=== PATIENT | female | born 1940 | race Caucasian/White ===

== ENCOUNTER 2017-10-12 11:31 | Inpatient (IN) | payer MEDICARE, BC, SELFPAY ==
[2017-10-12] VITALS (7 sets, daily range): BP systolic 135–162; BP diastolic 69–88; PULSE 87–92; RESP 13–20; TEMP 36.2–36.8; O2SAT 96–100; BMI 23.0
--- NOTE | 2017-10-12 11:35 | DI.RAD.S_ITS ---
PROCEDURE: XR CHEST 2V INDICATIONS: dysphagia TECHNIQUE: 2 views of the chest were acquired. COMPARISON: [facility], , CHEST 1 VIEW, 10/07/2016, 14:22. FINDINGS: Surgical changes and devices: Cholecystectomy clips and clips at the gastroesophageal junction are stable. Lungs and pleura: No pleural effusions or pneumothorax. Lungs are clear no acute opacities. Scarring in the periphery of the left midlung is stable. Mediastinum: Mediastinal contours are normal. Heart size is normal. Bones and chest wall: No suspicious bony abnormalities. Soft tissues appear unremarkable. IMPRESSION: No acute cardiopulmonary disease process. Dictated by: Vero Subramanian MD, PhD on 10/12/2017 at 11:35 Approved by: Vero Subramanian MD, PhD on 10/12/2017 at 11:36
--- NOTE | 2017-10-12 11:37 | ED.WEAKNESS ---
HPI - Weakness General Chief complaint: Upper Respiratory Symptoms Stated complaint: cant swallow Time Seen by Provider: 10/12/17 11:34 Source: patient and other (Dr. Swanson) Mode of arrival: wheelchair Limitations: no limitations History of Present Illness HPI Narrative: 77F hx multiple strokes and TIA sent by Dr. 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 Dr. Swanson requests IV fluids be started and screening labs. Related Data Home Medications Medication Instructions Recorded Confirmed latanoprost 1 drp OPHTHALMIC (EYE) QHS 10/12/17 10/12/17 pantoprazole 40 mg PO DAILY 10/12/17 10/12/17 Allergies Allergy/AdvReac Type Severity Reaction Status Date / Time codeine [CODEINE] Allergy Severe HAND Unverified 08/30/17 11:56 SWELLING morphine [MORPHINE] Allergy Severe ITCH Unverified 08/30/17 11:56 Penicillins [PENICILLINS] Allergy Severe ITCH Unverified 08/30/17 11:56 trimethoprim [From BACTRIM] Allergy Severe N/V, Unverified 08/30/17 11:56 BREATHING PROBLEMS sulfamethoxazole Allergy Mild N/V Unverified 08/30/17 11:56 [From BACTRIM] clindamycin [CLINDAMYCIN] Allergy Unknown PT UNSURE Unverified 08/30/17 11:56 gentamicin [GENTAMICIN] Allergy Unknown PT UNSURE Unverified 08/30/17 11:56 ALL THE CILLINS Allergy Severe ITCH Uncoded 08/30/17 11:56 IV CONTRAST DYE Allergy Severe RASH, Uncoded 08/30/17 11:56 SWEATING RAW CELERY Allergy Severe ANAPHYLAXIS Uncoded 08/30/17 11:56 Review of Systems Constitutional Denies chills, Denies fever(s), Denies lethargy and Denies weakness ENT Ears, Nose, Mouth, and Throat: Reports dysphagia, Denies mouth pain, Denies neck pain, Denies throat swelling and Denies tongue swelling Cardiovascular Denies chest pain, Denies irregular heart rhythm, Denies lightheadedness, Denies palpitations, Denies dyspnea, Denies dyspnea on exertion and Denies orthopnea Respiratory Denies cough, Denies dyspnea, Denies dyspnea on exertion and Denies wheezing Gastrointestinal Gastrointestinal: Reports dysphagia, Denies nausea and Reports vomiting Genitourinary Denies hematuria, Denies flank pain, Denies urinary incontinence and Denies urinary urgency Musculoskeletal Denies neck pain Neurologic Denies weakness Endocrine Denies palpitations Allergic/Immunologic Denies throat swelling, Denies tongue swelling and Denies wheezing [facility] Social History Smoking Status: Never smoker Exam Initial Vital Signs Initial Vital Signs: Vital Signs Temperature 97.1 F L 10/12/17 12:00 Pulse Rate 88 10/12/17 12:00 Respiratory Rate 16 10/12/17 12:00 Blood Pressure 138/73 H 10/12/17 12:00 Pulse Oximetry 98 10/12/17 12:00 Const General: cooperative and well developed Nutritional Appearance: well nourished Orientation: alert, awake, oriented x3 and not confused Eyes General: appearance normal, both eyes and all related structures Eyelids: eyelids normal Conjunctivae: conjunctivae normal Sclera: sclerae normal Pupils: PERRL EOM: EOM intact bilaterally Neck Neck: normal visual inspection, trachea midline, No lymphadenopathy, No midline deformity and No JVD Lymphatic: No lymphedema Resp Effort & Inspection: normal respiratory effort, able to speak in complete sentences, no respiratory distress and no use of accessory muscles Auscultation: clear to auscultation bilaterally, no rales, no rhonchi and no wheezes Cardio Rate: regular rate Rhythm: regular rhythm Heart Sounds: no click, no gallops, murmur systolic and no rubs Pulses: normal peripheral pulses GI Inspection: non-distended Palpation: soft, no hepatosplenomegaly, No guarding, No pulsatile mass and No tender Auscultation: normal bowel sounds Neuro General: alert, oriented x3, gait normal and no focal motor deficits Speech: speech normal Course Orders Ordered: ED Orders 10/12/17 11:35 XR chest 2V Stat Urinalysis and Microscopic Stat 10/12/17 12:11 EKG-12 Lead Stat 10/12/17 12:45 Complete Blood Count AUTO DIFF Stat Comprehensive Metabolic Panel Stat Magnesium Stat Partial Thromboplastin Time Stat Prothrombin Time INR Stat 10/12/17 13:05 Lactate (Lactic Acid) Stat Discontinued Medications Sodium Chloride (Normal Saline 0.9%) 1,000 mls @ 1,000 mls/hr IV BOLUS ONE Stop: 10/12/17 12:34 Last Infusion: 10/12/17 13:56 Dose: 0 mls/hr Admin: 10/12/17 12:48 Dose: 1,000 mls/hr Vital Signs - 8 hr 10/12/17 12:00 10/12/17 13:02 10/12/17 14:02 Temperature 97.1 F L Pulse Rate 88 87 Respiratory Rate 16 13 Blood Pressure 138/73 H Blood Pressure [Left Arm] 162/78 H 150/78 H Pulse Oximetry 98 100 MDM - Weakness Lab Data Result diagrams: 10/12/17 12:45 10/12/17 12:45 Lab Results 10/12/17 10/12/17 10/12/17 Range/Units 12:45 12:45 12:45 WBC 13.3 H (4.5-11.0) X10^3/uL RBC 5.08 (4.0-5.2) X10^6/uL Hgb 15.4 (12.0-16.0) g/dL Hct 44.9 (36-46) % MCV 88.3 (80-100) fL MCH 30.3 (26-34) PG MCHC 34.3 (30-36) % RDW 13.9 (11.6-14.8) % Plt Count 325 (150-400) X10^3/uL Neut % (Auto) 82.5 H (50-75) % Lymph % (Auto) 8.9 L (25-40) % [place] % (Auto) 5.7 (3-14) % Eos % (Auto) 2.3 (2-4) % Baso % (Auto) 0.6 (0-2) % Neut # (Auto) 58129 H (7748-2030) /uL PT 11.4 (10.1-12.7) SECONDS INR 1.1 (0.9-1.3) APTT 36 (26.4-36.2) SECONDS Sodium 146 H (137-145) mmol/L Potassium 3.8 (3.4-5.1) mmol/L Chloride 108.0 H (98-107) mmol/L Carbon Dioxide 16.0 L (22-32) mmol/L BUN 21.0 H (7-17) mg/dL Creatinine 1.20 H (0.52-1.04) mg/dL Estimated GFR 43.4 L (>60) mL/min BUN/Creatinine Ratio 17.5 (6-22) Glucose 114 H (80-110) mg/dL Lactate (0.7-2.1) mmol/L Calcium 10.2 (8.4-10.2) mg/dL Magnesium 2.0 (1.6-2.3) mg/dL Total Bilirubin 0.9 (0.2-1.3) mg/dL AST 26 (14-36) IU/L ALT 30 (9-52) IU/L Alkaline Phosphatase 119 (38-126) U/L Total Protein 8.3 H (6.3-8.2) g/dL Albumin 4.7 (3.5-5.0) g/dL Globulin 3.6 (1.7-4.1) g/dL Albumin/Globulin Ratio 1.3 (1.0-2.8) 05/24/18 Range/Units 13:05 WBC (4.5-11.0) X10^3/uL RBC (4.0-5.2) X10^6/uL Hgb (12.0-16.0) g/dL Hct (36-46) % MCV (80-100) fL MCH (26-34) PG MCHC (30-36) % RDW (11.6-14.8) % Plt Count (150-400) X10^3/uL Neut % (Auto) (50-75) % Lymph % (Auto) (25-40) % [place] % (Auto) (3-14) % Eos % (Auto) (2-4) % Baso % (Auto) (0-2) % Neut # (Auto) (2194-5870) /uL PT (10.1-12.7) SECONDS INR (0.9-1.3) APTT (26.4-36.2) SECONDS Sodium (137-145) mmol/L Potassium (3.4-5.1) mmol/L Chloride (98-107) mmol/L Carbon Dioxide (22-32) mmol/L BUN (7-17) mg/dL Creatinine (0.52-1.04) mg/dL Estimated GFR (>60) mL/min BUN/Creatinine Ratio (6-22) Glucose (80-110) mg/dL Lactate 1.1 (0.7-2.1) mmol/L Calcium (8.4-10.2) mg/dL Magnesium (1.6-2.3) mg/dL Total Bilirubin (0.2-1.3) mg/dL AST (14-36) IU/L ALT (9-52) IU/L Alkaline Phosphatase (38-126) U/L Total Protein (6.3-8.2) g/dL Albumin (3.5-5.0) g/dL Globulin (1.7-4.1) g/dL Albumin/Globulin Ratio (1.0-2.8) ABG Data Interpretation: Imaging Data Chest x-ray: Radiologist's impression: Patient: Shantell Hunter FMR#: [id number] : 1940Acct:[id number] Age/Sex: 77 / FDate of Service: 10/12/17 Loc: ED Accession Number: [id number] Procedure: XR chest 2V Ordering Provider: Silvio Mcdonough M.D. PROCEDURE: XR CHEST 2V INDICATIONS: dysphagia TECHNIQUE: 2 views of the chest were acquired. COMPARISON: [facility], , CHEST 1 VIEW, 10/07/2016, 14:22. FINDINGS: Surgical changes and devices: Cholecystectomy clips and clips at the gastroesophageal junction are stable. Lungs and pleura: No pleural effusions or pneumothorax. Lungs are clear no acute opacities. Scarring in the periphery of the left midlung is stable. Mediastinum: Mediastinal contours are normal. Heart size is normal. Bones and chest wall: No suspicious bony abnormalities. Soft tissues appear unremarkable. IMPRESSION: No acute cardiopulmonary disease process. Dictated by: Vero Subramanian MD, PhD on 10/12/2017 at 11:35 Approved by: Vero Subramanian MD, PhD on 10/12/2017 at 11:36 ECG Data Interpretation: Sinus Rhythm HR [address]/Tw change No ischemic changes Unchanged from prior 10/07/16 MDM Narrative Medical decision making narrative: Patient sent by PCP for evaluation of dysphagia and admission for dehydration Found to be in JOSE likely secondary to dehydration. IV fluids started No vomiting in ED. Handling secretions. Case discussed with Hospitalist Dr Dickerson. Agrees with plan for admission and further diagnostic testing. Discharge Plan Departure Patient Disposition: Admitted As Inpatient Clinical Impression: Dysphagia, JOSE (acute kidney injury), Dehydration
[2017-10-12] MEDS: SODIUM CHLORIDE 0.9% 1,000 ML 1000 ML IV (12:48)
[2017-10-12 12:52] LABS: Add Manual Diff / Slide Review NO; Basophils Percent Auto 0.6 % (0-2); Eosinophils Percent Auto 2.3 % (2-4); Hematocrit 44.9 % (36-46); Hemoglobin 15.4 g/dL (12.0-16.0); Lymphocytes Percent Auto 8.9 % (25-40); Mean Corpuscular HGB Conc 34.3 % (30-36); Mean Corpuscular Hemoglobin 30.3 PG (26-34); Mean Corpuscular Volume 88.3 fL (80-100); Monocytes Percent Auto 5.7 % (3-14); Neutrophils Absolute Auto 11000 /uL (3000-5900); Neutrophils Percent Auto 82.5 % (50-75); Platelet Count 325 X10^3/uL (150-400); Red Blood Cell Count 5.08 X10^6/uL (4.0-5.2); Red Cell Distribution Width 13.9 % (11.6-14.8); White Blood Cell Count 13.3 X10^3/uL (4.5-11.0)
--- NOTE | 2017-10-12 12:58 | PC.NURSE ---
Pt is unable to keep anything down. After eating or drinking, she will regurgitate it immediately back up. She states it feels as if it's stopping in her throat and coming right back up. Denies any abdominal pain. Has urinated today, but now bowel movement.
[2017-10-12 12:59] LABS: INR 1.1 (0.9-1.3); Prothrombin Time 11.4 SECONDS (10.1-12.7)
[2017-10-12 13:02] LABS: PTT Partial Thromboplastin Tim 36 SECONDS (26.4-36.2)
[2017-10-12 13:04] LABS: Alanine Aminotransferase 30 IU/L (9-52); Albumin 4.7 g/dL (3.5-5.0); Albumin Globulin Ratio 1.3 (1.0-2.8); Alkaline Phosphatase 119 U/L (38-126); Aspartate Aminotransferase 26 IU/L (14-36); BUN Creatinine Ratio 17.5 (6-22); Bilirubin Total 0.9 mg/dL (0.2-1.3); Calcium 10.2 mg/dL (8.4-10.2); Estimated Glomerular Filt Rate 43.4 mL/min (>60); Globulin 3.6 g/dL (1.7-4.1); Glucose 114 mg/dL (80-110); HEMOLYSIS < 15 (0-50); Potassium 3.8 mmol/L (3.4-5.1); Sodium 146 mmol/L (137-145); Total Protein 8.3 g/dL (6.3-8.2)
[2017-10-12 13:21] LABS: Lactate (Lactic Acid) 1.1 mmol/L (0.7-2.1)
--- NOTE | 2017-10-12 14:38 | PC.NURSE ---
Pt c/o 8/10 pain everywhere. Provider notified. No new orders.
--- NOTE | 2017-10-12 15:42 | PM.HP.1 ---
History of Present Illness Chief complaint: cant swallow Narrative: Shantell Hunter is a 77 year old female, patient of Dr. Rylan Berger who was sent from her primary care doctor's office to [facility] Emergency Room due to dysphagia. She started having difficulty with swallowing pretty suddenly yesterday. She is not able to swallow either liquid or solid. She feels food or liquid stuck in her throat. She has to regurgitate them out. She even has difficulty clear her own secretions. She has not noticed any speech problem or weakness or numbness on her extremities. Her has not noticed any confusion. Patient History Comment: Stroke times for Hypertension Lower GI bleed in 2016, on received 12 units of blood transfusion and partial resection of her colon Cholecystectomy Appendectomy Tonsillectomy Right kidney stone Family & Social History Household members: spouse Prior Living Arrangements: House lives independently: Yes other: Family history was noncontributory. Tobacco & Substance Use Smoking Status: Never smoker Meds Home Medications Medication Instructions Recorded Confirmed Type latanoprost 1 drp OPHTHALMIC (EYE) QHS 10/12/17 10/12/17 History pantoprazole 40 mg PO DAILY 10/12/17 10/12/17 History Allergies Allergy/AdvReac Type Severity Reaction Status Date / Time codeine [CODEINE] Allergy Severe HAND Unverified 08/30/17 11:56 SWELLING morphine [MORPHINE] Allergy Severe ITCH Unverified 08/30/17 11:56 Penicillins [PENICILLINS] Allergy Severe ITCH Unverified 08/30/17 11:56 trimethoprim [From BACTRIM] Allergy Severe N/V, Unverified 08/30/17 11:56 BREATHING PROBLEMS sulfamethoxazole Allergy Mild N/V Unverified 08/30/17 11:56 [From BACTRIM] clindamycin [CLINDAMYCIN] Allergy Unknown PT UNSURE Unverified 08/30/17 11:56 gentamicin [GENTAMICIN] Allergy Unknown PT UNSURE Unverified 08/30/17 11:56 ALL THE CILLINS Allergy Severe ITCH Uncoded 08/30/17 11:56 IV CONTRAST DYE Allergy Severe RASH, Uncoded 08/30/17 11:56 SWEATING RAW CELERY Allergy Severe ANAPHYLAXIS Uncoded 08/30/17 11:56 Review of Systems Constitutional Comments: No fever chills or sweats Cardiovascular Comments: No chest pain or shortness of breath Respiratory Comments: Denies coughing Gastrointestinal Comments: No abdominal pain or nausea Genitourinary Comments: Denies dysuria Musculoskeletal Comments: Low back pain Neurologic Comments: No numbness or weakness on extremities Exam Vital Signs (past 8 hours): Vital Signs - 8 hr 10/12/17 12:00 10/12/17 13:02 10/12/17 14:02 Temperature 97.1 F L Pulse Rate 88 87 Respiratory Rate 16 13 Blood Pressure 138/73 H Blood Pressure [Left Arm] 162/78 H 150/78 H Pulse Oximetry 98 100 10/12/17 15:05 Temperature 98.2 F Pulse Rate 91 H Respiratory Rate 14 Blood Pressure 135/72 H Blood Pressure [Left Arm] Pulse Oximetry 97 Pulse Oximetry 97 Oxygen Delivery Method Room Air Oxygen Flow Rate 0 Narrative Exam Narrative: GENERAL: Well-appearing, well-nourished and in no acute distress. HEENT: Head normocephalic, atraumatic. Eyes pupils equal round NECK: Supple, no JVD, CHEST: Breath sounds equal bilaterally, no wheezes rales or rhonchi. CARDIAC: Regular rate and rhythm without murmurs, rubs or gallops. ABDOMEN: Soft, nontender. Normoactive bowel sounds all 4 quadrants. No guarding or rebound. EXTREMITIES: Normal range of motion, no clubbing or edema. NEUROLOGICAL: Alert and oriented; cranial nerves 3-12 were intact. 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 Normal muscle strength in upper and lower extremities. SKIN: Warm, dry, no petechiae, no rashes or lesions. Objective Labs Result Diagrams: 10/12/17 12:45 10/12/17 12:45 Labs: Laboratory Results - last 24 hr 10/12/17 10/12/17 10/12/17 12:45 12:45 12:45 WBC 13.3 H RBC 5.08 Hgb 15.4 Hct 44.9 MCV 88.3 MCH 30.3 MCHC 34.3 RDW 13.9 Plt Count 325 Neut % (Auto) 82.5 H Lymph % (Auto) 8.9 L [place] % (Auto) 5.7 Eos % (Auto) 2.3 Baso % (Auto) 0.6 Neut # (Auto) 26700 H PT 11.4 INR 1.1 APTT 36 Sodium 146 H Potassium 3.8 Chloride 108.0 H Carbon Dioxide 16.0 L BUN 21.0 H Creatinine 1.20 H Estimated GFR 43.4 L BUN/Creatinine Ratio 17.5 Glucose 114 H Lactate Calcium 10.2 Magnesium 2.0 Total Bilirubin 0.9 AST 26 ALT 30 Alkaline Phosphatase 119 Total Protein 8.3 H Albumin 4.7 Globulin 3.6 Albumin/Globulin Ratio 1.3 10/12/17 13:05 WBC RBC Hgb Hct MCV MCH MCHC RDW Plt Count Neut % (Auto) Lymph % (Auto) [place] % (Auto) Eos % (Auto) Baso % (Auto) Neut # (Auto) PT INR APTT Sodium Potassium Chloride Carbon Dioxide BUN Creatinine Estimated GFR BUN/Creatinine Ratio Glucose Lactate 1.1 Calcium Magnesium Total Bilirubin AST ALT Alkaline Phosphatase Total Protein Albumin Globulin Albumin/Globulin Ratio Assessment & Plan Plan: Plan: 1. Dysphagia: Etiology is unclear. We will have speech evaluation and treatment. Consider upper endoscopy to rule out esophageal stricture. With her history of recurrent CVA, there is concern of CVA. However she does not seem to have other neurological symptoms. We will give her 1 time dose of aspirin suppository. Start telemetry monitoring 2. Hypertension: Continue outpatient medication. Continue monitor her blood pressure readings 3. Dehydration: Secondary to unable to take oral hydration. We will continue normal saline IV at 125 cc an hour. 4. Probable GERD: Continue Protonix
--- NOTE | 2017-10-12 15:49 | P.HP_ITS ---
History of Present Illness Chief complaint: cant swallow Narrative: Shantell Hunter is a 77 year old female, patient of Dr. Rylan agrawal who was sent from her primary care doctor's office to [facility] Emergency Room due to dysphagia. She started having difficulty with swallowing pretty suddenly yesterday. She is not able to swallow either liquid or solid. She feels food or liquid stuck in her throat. She has to regurgitate them out. She even has difficulty clear her own secretions. She has not noticed any speech problem or weakness or numbness on her extremities. Her has not noticed any confusion. Patient History Comment: Stroke times for Hypertension Lower GI bleed in 2016, on received 12 units of blood transfusion and partial resection of her colon Cholecystectomy Appendectomy Tonsillectomy Right kidney stone Family & Social History Household members: spouse Prior Living Arrangements: House lives independently: Yes other: Family history was noncontributory. Tobacco & Substance Use Smoking Status: Never smoker Meds Home Medications Medication Instructions Recorded Confirmed Type latanoprost 1 drp OPHTHALMIC (EYE) QHS 10/12/17 10/12/17 History pantoprazole 40 mg PO DAILY 10/12/17 10/12/17 History Allergies Allergy/AdvReac Type Severity Reaction Status Date / Time codeine [CODEINE] Allergy Severe HAND Unverified 08/30/17 11:56 SWELLING morphine [MORPHINE] Allergy Severe ITCH Unverified 08/30/17 11:56 Penicillins [PENICILLINS] Allergy Severe ITCH Unverified 08/30/17 11:56 trimethoprim [From BACTRIM] Allergy Severe N/V, Unverified 08/30/17 11:56 BREATHING PROBLEMS sulfamethoxazole Allergy Mild N/V Unverified 08/30/17 11:56 [From BACTRIM] clindamycin [CLINDAMYCIN] Allergy Unknown PT UNSURE Unverified 08/30/17 11:56 gentamicin [GENTAMICIN] Allergy Unknown PT UNSURE Unverified 08/30/17 11:56 ALL THE CILLINS Allergy Severe ITCH Uncoded 08/30/17 11:56 IV CONTRAST DYE Allergy Severe RASH, Uncoded 08/30/17 11:56 SWEATING RAW CELERY Allergy Severe ANAPHYLAXIS Uncoded 08/30/17 11:56 Review of Systems Constitutional Comments: No fever chills or sweats Cardiovascular Comments: No chest pain or shortness of breath Respiratory Comments: Denies coughing Gastrointestinal Comments: No abdominal pain or nausea Genitourinary Comments: Denies dysuria Musculoskeletal Comments: Low back pain Neurologic Comments: No numbness or weakness on extremities Exam Vital Signs (past 8 hours): Vital Signs - 8 hr 3 10/12/17 12:00 10/12/17 13:02 10/12/17 14:02 Temperature 97.1 F L Pulse Rate 88 87 Respiratory Rate 16 13 Blood Pressure 138/73 H Blood Pressure [Left Arm] 162/78 H 150/78 H Pulse Oximetry 98 100 3 10/12/17 15:05 Temperature 98.2 F Pulse Rate 91 H Respiratory Rate 14 Blood Pressure 135/72 H Blood Pressure [Left Arm] Pulse Oximetry 97 Pulse Oximetry 97 Oxygen Delivery Method Room Air Oxygen Flow Rate 0 Narrative Exam Narrative: GENERAL: Well-appearing, well-nourished and in no acute distress. HEENT: Head normocephalic, atraumatic. Eyes pupils equal round NECK: Supple, no JVD, CHEST: Breath sounds equal bilaterally, no wheezes rales or rhonchi. CARDIAC: Regular rate and rhythm without murmurs, rubs or gallops. ABDOMEN: Soft, nontender. Normoactive bowel sounds all 4 quadrants. No guarding or rebound. EXTREMITIES: Normal range of motion, no clubbing or edema. NEUROLOGICAL: Alert and oriented; cranial nerves 3-12 were intact. 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 Normal muscle strength in upper and lower extremities. SKIN: Warm, dry, no petechiae, no rashes or lesions. Objective Labs Result Diagrams: 10/12/17 12:45 10/12/17 12:45 Labs: Laboratory Results - last 24 hr 10/12/17 10/12/17 10/12/17 12:45 12:45 12:45 WBC 13.3 H RBC 5.08 Hgb 15.4 Hct 44.9 MCV 88.3 MCH 30.3 MCHC 34.3 RDW 13.9 Plt Count 325 Neut % (Auto) 82.5 H Lymph % (Auto) 8.[address] [place] [place] % (Auto) 5.7 Eos % (Auto) 2.3 Baso % (Auto) 0.6 Neut # (Auto) 06699 H PT 11.4 INR 1.1 APTT 36 Sodium 146 H Potassium 3.8 Chloride 108.0 H Carbon Dioxide 16.0 L BUN 21.0 H Creatinine 1.20 H Estimated GFR 43.4 L BUN/Creatinine Ratio 17.5 Glucose 114 H Lactate Calcium 10.2 Magnesium 2.0 Total Bilirubin 0.9 AST 26 ALT 30 Alkaline Phosphatase 119 Total Protein 8.3 H Albumin 4.7 Globulin 3.6 Albumin/Globulin Ratio 1.3 10/12/17 13:05 WBC RBC Hgb Hct MCV MCH MCHC RDW Plt Count Neut % (Auto) Lymph % (Auto) [place] % (Auto) Eos % (Auto) Baso % (Auto) Neut # (Auto) PT INR APTT Sodium Potassium Chloride Carbon Dioxide BUN Creatinine Estimated GFR BUN/Creatinine Ratio Glucose Lactate 1.1 Calcium Magnesium Total Bilirubin AST ALT Alkaline Phosphatase Total Protein Albumin Globulin Albumin/Globulin Ratio Assessment & Plan Plan: Plan: 1. Dysphagia: Etiology is unclear. We will have speech evaluation and treatment. Consider upper endoscopy to rule out esophageal stricture. With her history of recurrent CVA, there is concern of CVA. However she does not seem to have other neurological symptoms. We will give her 1 time dose of aspirin suppository. Start telemetry monitoring 2. Hypertension: Continue outpatient medication. Continue monitor her blood pressure readings 3. Dehydration: Secondary to unable to take oral hydration. We will continue normal saline IV at 125 cc an hour. 4. Probable GERD: Continue Protonix
--- NOTE | 2017-10-12 16:30 | PM.PN.1 ---
Subjective Interval history: Patient denies discomfort. He is laying in bed comfortably. Nursing has noticed his heart rate is in the 40s and blood pressure is also low around 90s systolic. Date Patient Seen: 10/12/17 Time Patient Seen: 16:00 Exam Vital Signs (past 8 hours): Vital Signs - 8 hr 10/12/17 12:00 10/12/17 13:02 10/12/17 14:02 Temperature 97.1 F L Pulse Rate 88 87 Respiratory Rate 16 13 Blood Pressure 138/73 H Blood Pressure [Left Arm] 162/78 H 150/78 H Pulse Oximetry 98 100 10/12/17 15:05 Temperature 98.2 F Pulse Rate 91 H Respiratory Rate 14 Blood Pressure 135/72 H Blood Pressure [Left Arm] Pulse Oximetry 97 Pulse Oximetry 97 Oxygen Delivery Method Room Air Oxygen Flow Rate 0 Objective Labs Result Diagrams: 10/12/17 12:45 10/12/17 12:45 Labs: Laboratory Results - last 24 hr 10/12/17 10/12/17 10/12/17 12:45 12:45 12:45 WBC 13.3 H RBC 5.08 Hgb 15.4 Hct 44.9 MCV 88.3 MCH 30.3 MCHC 34.3 RDW 13.9 Plt Count 325 Neut % (Auto) 82.5 H Lymph % (Auto) 8.9 L [place] % (Auto) 5.7 Eos % (Auto) 2.3 Baso % (Auto) 0.6 Neut # (Auto) 00429 H PT 11.4 INR 1.1 APTT 36 Sodium 146 H Potassium 3.8 Chloride 108.0 H Carbon Dioxide 16.0 L BUN 21.0 H Creatinine 1.20 H Estimated GFR 43.4 L BUN/Creatinine Ratio 17.5 Glucose 114 H Lactate Calcium 10.2 Magnesium 2.0 Total Bilirubin 0.9 AST 26 ALT 30 Alkaline Phosphatase 119 Total Protein 8.3 H Albumin 4.7 Globulin 3.6 Albumin/Globulin Ratio 1.3 10/12/17 13:05 WBC RBC Hgb Hct MCV MCH MCHC RDW Plt Count Neut % (Auto) Lymph % (Auto) [place] % (Auto) Eos % (Auto) Baso % (Auto) Neut # (Auto) PT INR APTT Sodium Potassium Chloride Carbon Dioxide BUN Creatinine Estimated GFR BUN/Creatinine Ratio Glucose Lactate 1.1 Calcium Magnesium Total Bilirubin AST ALT Alkaline Phosphatase Total Protein Albumin Globulin Albumin/Globulin Ratio
[2017-10-12] MEDS: HYDROMORPHONE 0.5 MG INJ IV ×3 (16:35→21:19)
[2017-10-12] MEDS: SODIUM CHLORIDE 0.9% 1,000 ML 125 ML IV (16:38)
[2017-10-12 17:22] LABS: RBC Urine None Seen (0-5/HPF)
[2017-10-12 17:26] LABS: Appearance Urine UA SL CLOUDY; Bilirubin Urine UA NEGATIVE (NEGATIVE); Color Urine UA YELLOW; Glucose Urine UA NEGATIVE (Negative); Ketones Urine UA 1+ (NEGATIVE); Leukocyte Esterase Urine UA 2+ (NEGATIVE); Nitrite Urine UA POSITIVE (Negative); Occult Blood Urine UA NEGATIVE (Negative); Protein Urine UA TRACE (Negative); Specific Gravity Urine UA 1.015 (1.000-1.035); Urobilinogen Urine UA 0.2 E.U./dL (0.2); pH Urine UA 6.5 (4.5-8.0)
[2017-10-12 17:30] LABS: Bacteria Urine Many (>30); Culture Indicated Urine Specimen Cultured; WBC Urine 10-30/HPF (0-5/HPF)
[2017-10-12] MEDS: LATANOPROST 0.005% OPHTH 2.5 ML 1 DROPS EYE-BOTH (21:03)
--- NOTE | 2017-10-13 | DI.RAD.S_ITS ---
PROCEDURE: FL BARIUM SWALLOW W SPEECH INDICATIONS: dysphagia TECHNIQUE: Examination was conducted in conjunction with speech pathology per standard protocol. In the lateral projection, filming was performed of the patient swallowing. AP projection filming may also be performed with patient swallowing. COMPARISON: None. FINDINGS: Function: The oral preparatory phase appears normal, with proper containment. The subsequent oral propulsive phase, pharyngeal phase, and esophageal phase of swallowing also appear normal with all proffered substances. Minimal laryngotracheal penetration with large swallow of thin liquids at the end of the exam, no aspiration. No pathologic vallecular pooling. Morphology: No cricopharyngeal bar is identified. No cervical esophageal webs. No Zenker's diverticulum. No strictures. IMPRESSION: Minimal laryngeal penetration. Please see speech therapist report for details. Dictated by: Ravi Gutiérrez M.D. on 10/13/2017 at 11:33 Approved by: Ravi Gutiérrez M.D. on 10/13/2017 at 11:35
[2017-10-13] MEDS: SODIUM CHLORIDE 0.9% 1,000 ML 125 ML IV ×3 (00:06→17:18)
[2017-10-13] MEDS: HYDROMORPHONE 0.5 MG INJ IV ×4 (01:17→12:59)
[2017-10-13 04:47] VITALS: BP 150/81; PULSE 75; RESP 18; TEMP 36.7; O2SAT 99
--- NOTE | 2017-10-13 07:07 | PC.NURSE ---
no episodes of n/v. at one point she felt like vomiting. she has not had anything to eat or drink all night. IVF infusing.
[2017-10-13 07:20] VITALS: BP 146/77; PULSE 72; RESP 16; TEMP 36.1; O2SAT 98
[2017-10-13] MEDS: PANTOPRAZOLE 40 MG TABLET PO (09:13)
[2017-10-13 10:17] VITALS: O2SAT 96
--- NOTE | 2017-10-13 10:51 | PC.NURSE ---
Day shift: Pt left unit for barium swallow eval/prcedure. A&Ox3. Calm and cooperative.
--- NOTE | 2017-10-13 11:29 | PC.NURSE ---
Day shift: Pt back on unit and in bed at approx 1130. Still A&Ox3. Denies any pain or discomfort. She reports she was able to keep the fluid down for the procedure. No emesis. Call light in reach. Bed alarm on. Spouse in room for support.
[2017-10-13 12:00] VITALS: BP 148/78; PULSE 78; RESP 16; TEMP 36.4; O2SAT 97
--- NOTE | 2017-10-13 13:16 | PC.NURSE ---
Day shift: Dr Dickerson notified that barium swallow complete. Also made aware that Pt is able to swallow now and ate some ice cream as well as drinking water. Bed alarm on. Call light in reach.
--- NOTE | 2017-10-13 13:48 | PM.PN.1 ---
Subjective Interval history: Patient has improvement of her swallowing today. She had barium swallowing earlier today which did not show any significant stricture. There was minimal laryngeal penetration with large swallowing of thin liquids. No aspiration. Exam Vital Signs (past 8 hours): Vital Signs - 8 hr 10/13/17 07:20 10/13/17 10:17 10/13/17 12:00 Temperature 97.0 F L 97.6 F Pulse Rate 72 78 Respiratory Rate 16 16 Blood Pressure 146/77 H 148/78 H Pulse Oximetry 98 96 97 Pulse Oximetry 97 Oxygen Delivery Method Room Air Oxygen Flow Rate 0 Narrative Exam Narrative: GENERAL: Well-appearing, well-nourished and in no acute distress. HEENT: Head normocephalic, atraumatic. Eyes pupils equal round NECK: Supple, no JVD, CHEST: Breath sounds equal bilaterally, no wheezes rales or rhonchi. CARDIAC: Regular rate and rhythm without murmurs, rubs or gallops. ABDOMEN: Soft, nontender. Normoactive bowel sounds all 4 quadrants. No guarding or rebound. EXTREMITIES: Normal range of motion, no clubbing or edema. NEUROLOGICAL: Alert and oriented; cranial nerves 3-12 were intact. 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 Normal muscle strength in upper and lower extremities. SKIN: Warm, dry, no petechiae, no rashes or lesions. Objective Imaging Barium swallowing: Radiologist's impression: Minimal laryngeal penetration. Please see speech therapist report for details. Labs Result Diagrams: 10/12/17 12:45 10/12/17 12:45 Labs: Laboratory Results - last 24 hr 10/12/17 14:45 Urine Color Yellow Urine Appearance Sl cloudy Urine pH 6.5 Ur Specific [place] 1.015 Urine Protein Trace H Urine Glucose (UA) Negative Urine Ketones 1+ H Urine Occult Blood Negative Urine Nitrate Positive H Urine Bilirubin Negative Urine Urobilinogen 0.2 Ur Leukocyte Esterase 2+ H Urine RBC None seen Urine WBC 10-30/hpf H Urine Bacteria Many (>30) H Ur Culture Indicated? Specimen cultured Micro UA Comment Not Reportable Assessment & Plan Plan: Plan: 1. Dysphagia: Etiology is unclear. Barium swallowing study did not show significant stricture or aspiration. She has improvement of her swallowing today advance diet to full liquid diet.. 2. Hypertension: Continue outpatient medication. Continue monitor her blood pressure readings 3. Dehydration: Secondary to unable to take oral hydration. Resolved. DC IV fluid 4. Probable GERD: Continue Protonix 5. Generalized pain: Etiology is unclear. The pain seemed to be more chronic to her. She was using Excedrin at home for pain control. She received IV Dilaudid yesterday. We will discontinue IV Dilaudid and start her on oral Vicodin as needed 6. Urinary tract infection: Urine analysis showed pyuria. Urine culture grew gram-negative bacilli. We will start her on ceftriaxone 1 g IV Q 24 hr. 7. Disposition: Possible discharge home tomorrow if she continues to improve.
[2017-10-13] MEDS: CEFTRIAXONE 1 GM/50 ML FROZ.PIGGY IV (14:14)
[2017-10-13] MEDS: HYDROCODONE/ACET 10/325 TABLET 1 TAB PO ×2 (15:41→22:57)
[2017-10-13 15:43] VITALS: BP 179/93; PULSE 76; RESP 20; TEMP 36.4; O2SAT 97
--- NOTE | 2017-10-13 15:53 | ST.SWALLOW ---
Visit Care Team Role Provider Type Rylan Dasilva MD Family Provider Non-Staff Primary Care Provider Specialty: Internal Medicine Address: [address] [place], [address] Email: Silvio Mcdonough MD Emergency Provider Physician Specialty: Emergency Medicine Address: [address] [place] [address], [id number] Email: Mana Dickerson MD Admit Provider Physician Attending Provider Specialty: Internal Medicine Address: [address] [place] [address], [id number] Email: Modified Barium Swallow Study DEPOT MANAGER Modified Barium Swallow Study Start: 10/13/17 15:30 Freq: Status: Active Protocol: Document 10/13/17 15:31 MRM (Rec: 10/13/17 15:52 MRM [id number]) Modified Barium Swallow Study Total Time Visit Start Time 11:00 Visit Stop Time 11:50 Total Visit Minutes [address] Dickerson Reason for Referral Dysphagia Setting Setting Acute Care Patient Information Identification Type Name Date of Patient History Patient was seen in the MBS room. Complaint of dificulty swallowing liquids or solids at inconsistent times. She was very worried about her ability to swallow. She stated that she does have trouble swallowing solids more frequently than swallowing liquids, but that she has felt sticking in her throat with both. Typically she tries to relieve this sensation through drinking water, but this does not always work. Sometimes she simply has to wait it out in order to feel relief. She is able to breathe during these episodes, but she has not attempted to speak during these episodes. 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 She reported never being seen by a speech therapist until today. 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 She reported having GERD but is not taking medication for this. No recent change in diet, no dietary restrictions. Currently able to tolerate a regular diet with thin liquids. Subjective Observations Patient awake and alert, very eager to participate in the study. Able to provide a thorough medical background. Observed slight dysarthric speech, secondary to history of CVA. Patient Positioning Position View Lateral Imaging Lateral View Textures Administered Trials Presented Thin Liquid via Cup Thin Liquid via Straw Dysphagia Blenderized Textures Dysphagia Mechanical Textures Regular Textures Oral Phase Source: MBSIMP (TM) (C) Bolus Specific Scoring Grid Lip Closure WFL Tongue Control During Bolus Hold WFL Bolus Prep/Mastication WFL Bolus Transport/Lingual Motion WFL A/P Lingual Propulsion Delay No Oral Residue WFL Residue Clearing WFL Nasal Regurgitation No Additional Oral Phase Observations Mild lingual residue observed after trials of thin liquid. Not signficant to cause vallecular pooling. Cleared with sequential bolus swallows . Pharyngeal Phase Source: MBSIMP (TM) (C) Bolus Specific Scoring Grid Delayed Initiation of Pharyngeal Swallow No Soft Palate Elevation WFL Tongue Base Strength/Range of Motion WFL Residue Along the Tongue Base Yes: Mild Clearance of Residue Along Tongue Base Minimal Impairment Laryngeal Elevation WFL Anterior Hyoid Movement Minimal Impairment Epiglottic Range of Motion WFL Vallecular Residue Yes: Trace amount Clearance of Vallecular Residue Minimal Impairment Laryngeal Vestibular Closure WFL Pharyngeal Stripping Wave WFL Posterior Pharyngeal Wall Residue Yes: Trace amount Clearance of Posterior Pharyngeal Wall Minimal Impairment Residue Upper Esophageal Sphincter Opening WFL Residue in the Pyriform Sinuses Yes: Trace amount Clearance of Residue in the Pyriform Minimal Impairment Sinuses Esophageal Clearance Upright Position WFL Pharyngoesophageal Backflow Observed Yes: Trace amount, difficult to observe from lateral view Additional Pharyngeal Phase Observations Difficulty observed in implementing dry swallow to clear secretions. Chin tuck initiated, but unsuccessful. With presentation of bolus ( liquid or solid) swallow response present without difficulty. Mild flash penetration occurred x2 in 5 trials of thin liquid. No laryngeal pooling or residue observed following this. Penetration occurred during the swallow. No aspiration. A/P View Esophageal Observations Esophageal Function Please refer to radiology report. GI consult warranted. Clinical Impressions Dysphagia Type No dysphagia Findings From the results of the study, no oropharyngeal dysphagia. Patient currently functioning WF in oropharyngeal function. Mild flash penetration observed during the swallow x2 with thin liquids. All other trials (thin liquids x5, puree textures x1, soft fruit x1, dry cracker x2) were observed to successfully pass through oral cavity at the apporopirate time and through the pharynx with swallow initiation on time and epiglottic inversion sufficient for laryngeal closure. Mild pharyngeal reisude observed after trials of liquids (along the tongue base, in the vallecula, along the aryepiglottic folds and in to the pyriform sinuses). Patient attempted to perform a dry swallow to clear this residue, but she had difficulty completing this. However, with a follow up swallow of liquid /solid, she was able to clear this residue without difficulty. Observed presence of what resembled osteophytes around C -5/C-6. Please see radiology report for further detail. Refer to ENT and GI for clinical coorelation. No additional speech therapy services required at this time . No diet modification required. Please reconsult if warranted. Rehabilitation Potential Excellent Patient Appropriate for Therapy No: No dysphagia Recommendations Diet Liquids Order Thin Diet Order Regular Medication Recommendation As Tolerated Aspiration Precautions Recommended Precautions Upright at 90 Degrees Alternate Liquids/Solids Small Bites/Sips Effortful Swallow Double Swallow Treatment Plan Therapy Recommendations Base of Tongue Exercises Compensatory Strategy Education GERD/Vocal Hygiene Education Additional Therapy Recommendations Outpatient speech therapy for pharyngeal strengthening exercises Recommended Referrals Primary Care Physician GI Consult ENT Consult Compensatory Strategies Recommendations Double Swallow Placement Recommendation After Discharge Outpatient Therapy Additional Recommendations/Comments Please consult GI and ENT for further evaluation of pharyngoesophgeal function. No additional inpatient speech therapy needs at this time. Patient is invited to attend outpatient speech therapy to address dysarthic speech and/ or participate in pharyngeal strengthening exercises.
--- NOTE | 2017-10-13 15:53 | SLP.IPNOTE ---
DISPATCHER MAINTENANCE SERVICE spoke to the patient to follow up on how she did with lunch. Patient was very relieved and stated that she had no difficulty with her lunch. She had no concerns and stated that she no longer needed speech therapy. DISPATCHER MAINTENANCE SERVICE reviewed the need for GI and ENT referral to further evaluate the nature of her swallowing difficult considering her successful MBS results. She agreed to these referral recommendations. No further speech therapy services warranted at this time. Please reconsult if warranted.
[2017-10-13 19:53] VITALS: BP 166/90; PULSE 66; RESP 18; TEMP 36.4; O2SAT 97
[2017-10-13] MEDS: LATANOPROST 0.005% OPHTH 2.5 ML 1 DROPS EYE-BOTH (20:08)
[2017-10-13] MEDS: ONDANSETRON 4 MG/2 ML INJ IV (21:41)
[2017-10-14 00:57] VITALS: BP 147/77; PULSE 72; RESP 16; TEMP 37.2; O2SAT 97
[2017-10-14] MEDS: SODIUM CHLORIDE 0.9% 1,000 ML 125 ML IV ×2 (00:59→09:04)
[2017-10-14 01:10] VITALS: O2SAT 97
--- NOTE | 2017-10-14 06:23 | PC.NURSE ---
around 0620, pt had 15 beats of Vtach. pt comfortable. HR around 60's.
[2017-10-14 06:26] VITALS: BP 146/75; PULSE 66; RESP 16; TEMP 36.7; O2SAT 97
[2017-10-14 07:50] VITALS: BP 141/80; PULSE 61; RESP 16; TEMP 36.7; O2SAT 97
[2017-10-14] MEDS: PANTOPRAZOLE 40 MG TABLET PO (09:04)
[2017-10-14 09:31] LABS: Add Manual Diff / Slide Review NO; Basophils Percent Auto 1.4 % (0-2); Eosinophils Percent Auto 5.4 % (2-4); Hematocrit 35.8 % (36-46); Hemoglobin 12.4 g/dL (12.0-16.0); Lymphocytes Percent Auto 24.8 % (25-40); Mean Corpuscular HGB Conc 34.6 % (30-36); Mean Corpuscular Hemoglobin 30.5 PG (26-34); Mean Corpuscular Volume 88.1 fL (80-100); Monocytes Percent Auto 10.3 % (3-14); Neutrophils Absolute Auto 3400 /uL (3000-5900); Neutrophils Percent Auto 58.1 % (50-75); Platelet Count 244 X10^3/uL (150-400); Red Blood Cell Count 4.07 X10^6/uL (4.0-5.2); Red Cell Distribution Width 13.7 % (11.6-14.8); White Blood Cell Count 5.9 X10^3/uL (4.5-11.0)
--- NOTE | 2017-10-14 09:36 | CM.DANOTE ---
DCP Assessment Patient is a 77 year old female who was admitted on 10/12/17 for swallow issues. Pt has MCR and BCBS for insurance and her PCP is Dr. Dasilva. EMR was reviewed. Per MD, advancing pt's diet and possible home today if stable. Per DELINQUENCY PREVENTION OFFICER, pt's swallow has improved and tolerated solid foods well so far. SW met bedside with pt and explained role and pt confirmed that she lives at home near [place] with her with supportive local adult children. Pt is Independent with ADL's at baseline and active with outside gardening and the community. Pt has a hx of SNF at [facility] in 2016 but not other services or supports needed since that time. Pt preference is to d/c home when medically stable with family support and does not anticipate any SW needs at d/c. Plan: SW to follow for likely pt d/c home with family support when medically stable, possibly today. No SW needs at this time, please refer if indicated. VANIA Garcia
[2017-10-14 09:44] LABS: BUN Creatinine Ratio 8.3 (6-22); Estimated Glomerular Filt Rate > 60.0 mL/min (>60); Glucose 98 mg/dL (80-110); HEMOLYSIS < 15 (0-50); Potassium 3.4 mmol/L (3.4-5.1); Sodium 142 mmol/L (137-145)
--- NOTE | 2017-10-14 10:33 | PM.DS.1 ---
History of Present Illness Chief complaint: cant swallow Narrative: Shantell Hunter is a 77 year old female, patient of Dr. Rylan Dasilva'nghia who was sent from her primary care doctor's office to [facility] Emergency Room due to dysphagia. She started having difficulty with swallowing pretty suddenly yesterday. She is not able to swallow either liquid or solid. She feels food or liquid stuck in her throat. She has to regurgitate them out. She even has difficulty clear her own secretions. She has not noticed any speech problem or weakness or numbness on her extremities. Her has not noticed any confusion. Discharge Providers Date of admission: 10/12/17 14:44 Primary care physician: Rylan Dasilva MD Consults: 10/13/17 09:42 Consult to Speech Therapy Evaluate & Treat Comment: Physician Instructions: Evaluate and treat Discharge provider: Mana Dickerson MD Discharge Date: 10/14/17 Summary Discharge Diagnosis: 1. Dysphagia 2. Dehydration 3. Acute kidney injury secondary to dehydration 4. Generalized pain 5. E coli urinary tract infection 6. GERD Hospital Course: 1. Dysphagia: Etiology is not quite clear. Barium swallowing by speech on October 13, 2017 did not show significant stricture or aspiration. Patient had improvement of her swallowing on the same day. She was able to tolerate full liquid diet without difficulty. She may need outpatient EGD to further evaluate for possible esophageal stricture. 2. Dehydration and acute kidney injury, secondary to decreased oral fluid intake. She received IV hydration. Her renal function has returned to normal. The dehydration has resolved. 3. E coli urinary tract infection: Her urinalysis showed pyuria. Urine culture grew E coli which was pansensitive. She received IV ceftriaxone while she was in the hospital. We will discharge her on oral ciprofloxacin for total of 10 day antibiotic treatment course. 4. Generalized pain, etiology is unclear. She has some chronic pain. She was using Excedrin at home for pain control. She initially received IV Dilaudid when she was not able to take oral medications. She subsequently received oral Vicodin as needed for pain control. Excedrin or NSAID may not be a good option for her for pain control. She is to use Tylenol as needed for pain control as outpatient. 5. GERD: She was continued on Protonix. Status at Discharge Cognitive/behavioral status at discharge: Alert and oriented x3. Functional status at discharge: independent ambulation Overall status at discharge: patient is back to baseline Time Spent with Patient Greater than 30 minutes Exam Vital Signs (past 8 hours): Vital Signs - 8 hr 10/14/17 06:26 10/14/17 07:50 Temperature 98.1 F 98.1 F Pulse Rate 66 61 Respiratory Rate 16 16 Blood Pressure 146/75 H 141/80 H Pulse Oximetry 97 97 Pulse Oximetry 97 Oxygen Delivery Method Room Air Oxygen Flow Rate 0 Objective Imaging Modified barium swallowing study: Radiologist's impression: Minimal laryngeal penetration. Please see speech therapist report for details. Labs Result Diagrams: 10/14/17 09:25 10/14/17 09:25 Labs: Laboratory Results - last 24 hr 10/14/17 10/14/17 09:25 09:25 WBC 5.9 D RBC 4.07 Hgb 12.4 Hct 35.8 L MCV 88.1 MCH 30.5 MCHC 34.6 RDW 13.7 Plt Count 244 Neut % (Auto) 58.1 D Lymph % (Auto) 24.8 L [place] % (Auto) 10.3 Eos % (Auto) 5.4 H Baso % (Auto) 1.4 Neut # (Auto) 3400 Sodium 142 Potassium 3.4 Chloride 107.0 Carbon Dioxide 24.0 BUN 5.0 L Creatinine 0.60 Estimated GFR > 60.0 BUN/Creatinine Ratio 8.3 Glucose 98 Calcium 9.0 Discharge Plan Discharge Plan Patient Disposition: Home, Self-Care Provider Discharge Instructions Diet: Diet as Tolerated Discharge Data Primary Care Provider: Rylan Dasilva Attending Provider: Mana Dickerson Admit Date/Time: 10/12/17 14:44
== END 2017-10-14 11:30 | disposition home or self-care (01) | DRG 392 ==
LOC: ED 14:01 → AC 14:46
PROVIDERS: Admitting Provider Internal Medicine; Emergency Provider Student in an Organized Health Care Education/Training Program; Family Provider Internal Medicine; PCP Internal Medicine; Visit Provider Internal Medicine
DX: R13.10 Dysphagia, unspecified (principal); I10 Essential (primary) hypertension; E86.0 Dehydration; K21.9 Gastro-esophageal reflux disease without esophagitis; Z86.73 Personal history of transient ischemic attack (TIA), and cerebral infarction without residual deficits
CPT/HCPCS: 36415; 36591; 71046; 74230; 80048; 80053; 81001; 83605; 83735; 85025; 85610; 85730; 87086; 87186; 92611; 93005; 99282; 99285; J1170; J2405

== ENCOUNTER → 2018-09-17 10:22 | Outpatient (CLI) | payer MEDICARE, BC, SELFPAY ==
[2017-10-12 16:05] VITALS: BMI 23.0
--- NOTE | 2018-09-17 | DI.US.S_ITS ---
PROCEDURE: US ABDOMEN COMPLETE INDICATIONS: ACTUE PANCREATITIS WITHOUT NECROSIS OR INFECTION TECHNIQUE: Real-time scanning was performed of the abdominal and retroperitoneal organs, with image documentation. COMPARISON: None. FINDINGS: Liver: Liver is normal in size and homogeneous in echotexture. Gallbladder: Surgically absent. Biliary ducts: Intrahepatic bile ducts are mildly-dilated with the right intrahepatic duct measuring up to 4 mm. Extrahepatic bile duct caliber measures 19.0 mm. Normal is 6-7 mm or less in diameter, or 10 mm or less post-cholecystectomy. Pancreas: Visualized portions of the pancreas are sonographically normal. Spleen: Spleen is normal in size and homogeneous in echotexture. Punctate echogenic foci consistent with old granulomatous disease. Kidneys: Kidneys are normal in size and echotexture. Right kidney measures 10.1 cm long; left kidney measures 10.8 cm long. No hydronephrosis or nephrolithiasis. No solid masses. Aorta: Visualized aorta is normal in caliber at less than 3 cm. Iliacs: Proximal common iliac arteries are normal in caliber at less than 2.5 cm. IVC: Intrahepatic inferior vena cava is patent. Miscellaneous: No free abdominal fluid. IMPRESSION: Abnormal prominence of the common bile duct measuring up to 19 mm in transverse dimension in this patient who has undergone prior cholecystectomy. The intrahepatic right main duct measures 4 mm, and etiology is uncertain. Please correlate with liver function tests to determine whether there is evidence of biliary hypertension. Occasionally a post-cholecystectomy patient may demonstrate a bile duct of this large caliber without a distal obstructive event but that should be considered and followup by MR cholangiogram may be the appropriate next step depending on the clinical status. Note is made of a mid to inferior right renal cyst measuring 1 cm. 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 Incidental note is made of focal dilatation of the distal abdominal aorta with a rounded area of increased caliber of the distal aorta measuring up to 2.1 x 2.0 cm in axial dimension despite measuring 1.5 cm at the middle third of the aorta. Followup assessment of the aorta is recommended in 6 months given this focal dilatation. Dictated by: David Cano M.D. on 09/17/2018 at 11:31 Approved by: David Cano M.D. on 09/17/2018 at 11:37
== END ==
PROVIDERS: PCP Internal Medicine; Visit Provider Internal Medicine
DX: K85.90 Acute pancreatitis without necrosis or infection, unspecified (principal); K83.9 Disease of biliary tract, unspecified; I77.811 Abdominal aortic ectasia; N28.1 Cyst of kidney, acquired; Z90.49 Acquired absence of other specified parts of digestive tract
CPT/HCPCS: 76700

== ENCOUNTER 2018-12-22 12:17 | Emergency (ER) | payer MEDICARE, BC, SELFPAY ==
[2017-10-12 16:05] VITALS: BMI 23.0
[2018-12-22 12:20] VITALS: BP 131/80; PULSE 100; RESP 18; TEMP 36.7; O2SAT 98
--- NOTE | 2018-12-22 12:40 | DI.RAD.S_ITS ---
PROCEDURE: XR ACUTE ABDOMEN SERIES INDICATIONS: dysphagia TECHNIQUE: One view chest and two views of the abdomen were acquired. COMPARISON: [facility], , CHEST 1 VIEW, 10/07/2016, 14:22. [facility], , KUB XRAY (1 VIEW ABDOMEN), 07/05/2015, 9:29. [facility], , ABDOMEN ACUTE SERIES, 10/23/2015, 16:27. FINDINGS: Surgical changes and devices: Epigastric clips are seen. Cholecystectomy clips are seen. anastomotic staple lines are seen on the right. Chest: Lungs are clear. Heart size is normal. No pleural effusions. No pneumoperitoneum. Abdomen: Bowel gas pattern is normal. No suspicious calcifications. Visualized solid organ contours appear normal. Bones: No suspicious bony lesions. Prominent calcifications can be seen involving the soft tissues of the buttocks and the proximal thighs, as before. IMPRESSION: Clear lungs. Nonobstructive bowel gas pattern. Postoperative changes are seen. Prominent soft tissue calcification again seen. Dictated by: Min Kaur M.D. on 12/22/2018 at 12:00 Approved by: Min Kaur M.D. on 12/22/2018 at 12:01
--- NOTE | 2018-12-22 13:23 | ED.URI ---
HPI - URI/Sore Throat <Kristie Benjamin, [employer]-BC - Last Filed: 12/22/18 17:39> General Chief Complaint: Upper Respiratory Symptoms Stated Complaint: unable to get food down/stuck in throat Time Seen by Provider: 12/22/18 12:29 Source: patient and family Mode of arrival: wheelchair Limitations: no limitations History of Present Illness HPI Narrative: The patient is a 78-year-old female with her for chief complaint of difficulty swallowing. She states that she is having trouble swallowing food and secretions. She states initially states she was able to swallow her own secretions until this morning, but then states that she has not been able swelling the fluid for 3 days. She denies any cough, congestion, abdominal pain, nausea vomiting or diarrhea. She states that she had some discomfort yesterday, when she became ?stopped up.She states that this happens frequently, and that she is able to tolerate fluids frequently, however she states that has not gone on this long in a while. Patient denies any lightheadedness, dizziness. She states that she does not have any cough or shortness of breath, but states that she has increased risk of aspiration pneumonia due to her swallowing difficulties. She states that her issues from more of a spasm, and she does not have a food bolus. She states that she has not had an endoscopy done, but that she has an appointment scheduled with her PCP coming up for further testing. She states that she has not had a bowel movement for several days, but this is normal for her. The patient states she is being treated for urinary tract infection with ciprofloxacin at this point in time Related Data Home Medications Medication Instructions Recorded Confirmed latanoprost 1 drp OPHTHALMIC (EYE) QHS 10/12/17 10/12/17 pantoprazole 40 mg PO DAILY 10/12/17 10/12/17 Previous Rx's Medication Instructions Recorded ondansetron 4 mg PO Q6H PRN #20 tab 12/22/18 Allergies Allergy/AdvReac Type Severity Reaction Status Date / Time codeine [CODEINE] Allergy Severe HAND Verified 10/12/17 22:24 SWELLING Penicillins [PENICILLINS] Allergy Severe ITCH Verified 10/12/17 22:24 trimethoprim [From BACTRIM] Allergy Severe N/V, Verified 10/12/17 22:24 BREATHING PROBLEMS sulfamethoxazole Allergy Mild N/V Verified 10/12/17 22:24 [From BACTRIM] clindamycin [CLINDAMYCIN] Allergy Unknown PT UNSURE Verified 10/12/17 22:24 gentamicin [GENTAMICIN] Allergy Unknown PT UNSURE Verified 10/12/17 22:24 ALL THE CILLINS Allergy Severe ITCH Uncoded 08/30/17 11:56 IV CONTRAST DYE Allergy Severe RASH, Uncoded 08/30/17 11:56 SWEATING RAW CELERY Allergy Severe ANAPHYLAXIS Uncoded 08/30/17 11:56 Review of Systems <FRANCINE Gonsales - Last Filed: 12/22/18 17:39> Review of Systems GENERAL: Denies chills, fatigue, malaise, fever, sweats. HEENT: See HPI RESPIRATORY: Denies dyspnea, cough, wheezing, hemoptysis, sputum. CARDIOVASCULAR: Denies chest pain, palpitations, orthopnea, edema, GASTROINTESTINAL: See HPI : Denies dysuria, frequency, incontinence, hematuria, urinary retention. MUSCULOSKELETAL: denies weakness, joint pain, or bony pain SKIN: Denies rash, skin lesions, or other NEUROLOGIC: Denies weakness, headache, numbness, change in speech, confusion, seizures, incoordination. PSYCHIATRIC: No concerning psychosocial issues. 12 point review of systems is negative except for those stated above PFSH <FRANCINE Gonsales - Last Filed: 12/22/18 17:39> Social History household members: spouse lives independently: Yes other: Family history was noncontributory. Smoking Status: Never smoker Social History household members: spouse lives independently: Yes other: Family history was noncontributory. Smoking Status: Never smoker Exam <FRANCINE Gonsales - Last Filed: 12/22/18 17:39> Narrative Exam Narrative: GENERAL: This is a well-nourished, well-developed patient, no acute distress HEAD: Atraumatic. Normocephalic. No temporal or scalp tenderness. EYES: Pupils equal round and reactive. Extraocular motions intact. No scleral icterus. No injection or drainage. ENT: Nose without bleeding, purulent drainage or septal hematoma. Throat without erythema, tonsillar hypertrophy or exudate. Uvula midline. Airway patent. Moist mucous membranes present. NECK: Trachea midline. No JVD or lymphadenopathy. Supple, nontender, no meningeal signs. CARDIOVASCULAR: Regular rate and rhythm without murmurs, gallops, or rubs. RESPIRATORY: Clear to auscultation. Breath sounds equal bilaterally. No wheezes, rales, or rhonchi. No cough. No increased respiratory effort. No accessory muscle use. GASTROINTESTINAL: Abdomen soft, non-tender, nondistended. No hepato-splenomegaly, or palpable masses. No guarding. Active bowel sounds all 4 quadrants. EXTREMITIES: No clubbing, cyanosis, or edema. No joint tenderness, effusion, or edema noted. BACK: Nontender without deformity or crepitance. No flank tenderness. NEURO: AOx3. SKIN: No rash or erythema. Initial Vital Signs Initial Vital Signs: Vital Signs Temperature 98.1 F 12/22/18 12:20 Pulse Rate 100 H 12/22/18 12:20 Respiratory Rate 18 12/22/18 12:20 Blood Pressure 131/80 12/22/18 12:20 Pulse Oximetry 98 12/22/18 12:20 <nAnette Palmer DO - Last Filed: 12/30/18 20:25> Initial Vital Signs Initial Vital Signs: Vital Signs Temperature 98.1 F 12/22/18 12:20 Pulse Rate 100 H 12/22/18 12:20 Respiratory Rate 18 12/22/18 12:20 Blood Pressure 131/80 12/22/18 12:20 Pulse Oximetry 98 12/22/18 12:20 Course <FRANCINE Gonsales - Last Filed: 12/22/18 17:39> Orders Ordered: Discontinued Medications Sodium Chloride (Normal Saline 0.9%) 1,000 mls @ 250 mls/hr IV CONT IESHA Last Infusion: 12/22/18 16:24 Dose: 0 mls/hr Admin: 12/22/18 13:49 Dose: 250 mls/hr Ondansetron HCl (Zofran) 4 mg IV NOW ONE Stop: 12/22/18 15:08 Last Admin: 12/22/18 15:11 Dose: 4 mg Vital Signs - 8 hr 12/22/18 12:20 12/22/18 14:00 12/22/18 16:55 Temperature 98.1 F Pulse Rate 100 H 83 80 Respiratory Rate 18 15 20 Blood Pressure 131/80 160/69 H Blood Pressure [Right Arm] 129/95 H Pulse Oximetry 98 97 98 <Annette Palmer DO - Last Filed: 12/30/18 20:25> Orders Ordered: Discontinued Medications Sodium Chloride (Normal Saline 0.9%) 1,000 mls @ 250 mls/hr IV CONT IESHA Last Infusion: 12/22/18 16:24 Dose: 0 mls/hr Admin: 12/22/18 13:49 Dose: 250 mls/hr Ondansetron HCl (Zofran) 4 mg IV NOW ONE Stop: 12/22/18 15:08 Last Admin: 12/22/18 15:11 Dose: 4 mg Vital Signs - 8 hr 12/22/18 12:20 12/22/18 14:00 12/22/18 16:55 Temperature 98.1 F Pulse Rate 100 H 83 80 Respiratory Rate 18 15 20 Blood Pressure 131/80 160/69 H Blood Pressure [Right Arm] 129/95 H Pulse Oximetry 98 97 98 MDM - URI/Sore Throat <RONNI Gonsales-BC - Last Filed: 12/22/18 17:39> Lab Data Result diagrams: 12/22/18 13:51 12/22/18 13:51 Lab Results 12/22/18 12/22/18 12/22/18 Range/Units 13:51 13:51 14:05 WBC 7.7 (4.5-11.0) X10^3/uL RBC 4.76 (4.0-5.2) X10^6/uL Hgb 14.5 (12.0-16.0) g/dL Hct 43.6 (36-46) % MCV 91.6 (80-100) fL MCH 30.5 (26-34) PG MCHC 33.3 (30-36) % RDW 13.6 (11.6-14.8) % Plt Count 289 (150-400) X10^3/uL Neut % (Auto) 68.9 (50-75) % Lymph % (Auto) 21.3 L (25-40) % [place] % (Auto) 7.3 (3-14) % Eos % (Auto) 1.8 L (2-4) % Baso % (Auto) 0.7 (0-2) % Neut # (Auto) 5300 (4017-6833) /uL Lymph # (Auto) 1600 (4918-7024) /uL [place] # (Auto) 600 (0-900) /uL Eos # (Auto) 100 (0-450) /uL Baso # (Auto) 100 (0-100) /uL Sodium 142 (137-145) mmol/L Potassium 4.1 (3.4-5.1) mmol/L Chloride 107 (98-107) mmol/L Carbon Dioxide 18 L (22-32) mmol/L BUN 19 H (7-17) mg/dL Creatinine 1.00 (0.52-1.04) mg/dL Estimated GFR 53.5 L (>60) mL/min BUN/Creatinine Ratio 19.0 (6-22) Glucose 81 (80-110) mg/dL Lactate 0.9 (0.7-2.1) mmol/L Calcium 10.1 (8.4-10.2) mg/dL Total Bilirubin 0.8 (0.2-1.3) mg/dL AST 26 (14-36) IU/L ALT 11 (9-52) IU/L Alkaline Phosphatase 73 (38-126) U/L Total Protein 7.7 (6.3-8.2) g/dL Albumin 4.6 (3.5-5.0) g/dL Globulin 3.1 (1.7-4.1) g/dL Albumin/Globulin Ratio 1.5 (1.0-2.8) Amylase 84 (30-110) U/L Lipase 59 (23-300) U/L Urine Color Urine Appearance Urine pH (4.5-8.0) Ur Specific [place] (1.000-1.035) Urine Protein (Negative) Urine Glucose (UA) (Negative) g/dL Urine Ketones (NEGATIVE) Urine Occult Blood (Negative) Urine Nitrate (Negative) Urine Bilirubin (NEGATIVE) Urine Ictotest (Negative) Urine Urobilinogen (0.2) E.U./dL Ur Leukocyte Esterase (NEGATIVE) Urine RBC (0-5/HPF) Urine WBC (0-5/HPF) Ur Squamous Epith Cells (0-5/HPF) Ur Transition Epith Cell Ur Renal Epithelial Cell Calcium Oxalate Crystal Uric Acid Crystals Triple Phos Crystals Other Crystals Amorphous Sediment Urine Bacteria (None) Hyaline Casts (None) Granular Casts RBC Casts WBC Casts Other Casts Urine Mucus (Negative) Urine Trichomonas Urine Yeast Urine Sperm Ur Culture Indicated? Micro UA Comment 12/22/18 12/22/18 Range/Units 15:39 15:39 WBC (4.5-11.0) X10^3/uL RBC (4.0-5.2) X10^6/uL Hgb (12.0-16.0) g/dL Hct (36-46) % MCV (80-100) fL MCH (26-34) PG MCHC (30-36) % RDW (11.6-14.8) % Plt Count (150-400) X10^3/uL Neut % (Auto) (50-75) % Lymph % (Auto) (25-40) % [place] % (Auto) (3-14) % Eos % (Auto) (2-4) % Baso % (Auto) (0-2) % Neut # (Auto) (5075-0543) /uL Lymph # (Auto) (3342-0094) /uL [place] # (Auto) (0-900) /uL Eos # (Auto) (0-450) /uL Baso # (Auto) (0-100) /uL Sodium (137-145) mmol/L Potassium (3.4-5.1) mmol/L Chloride (98-107) mmol/L Carbon Dioxide (22-32) mmol/L BUN (7-17) mg/dL Creatinine (0.52-1.04) mg/dL Estimated GFR (>60) mL/min BUN/Creatinine Ratio (6-22) Glucose (80-110) mg/dL Lactate (0.7-2.1) mmol/L Calcium (8.4-10.2) mg/dL Total Bilirubin (0.2-1.3) mg/dL AST (14-36) IU/L ALT (9-52) IU/L Alkaline Phosphatase (38-126) U/L Total Protein (6.3-8.2) g/dL Albumin (3.5-5.0) g/dL Globulin (1.7-4.1) g/dL Albumin/Globulin Ratio (1.0-2.8) Amylase (30-110) U/L Lipase (23-300) U/L Urine Color Yellow Cancelled Urine Appearance Slightly cloudy Cancelled Urine pH 5.5 Cancelled (4.5-8.0) Ur Specific [place] 1.025 Cancelled (1.000-1.035) Urine Protein 1+ H Cancelled (Negative) Urine Glucose (UA) Negative Cancelled (Negative) g/dL Urine Ketones 3+ H Cancelled (NEGATIVE) Urine Occult Blood Trace-intact Cancelled (Negative) Urine Nitrate Negative Cancelled (Negative) Urine Bilirubin 2+ H Cancelled (NEGATIVE) Urine Ictotest Positive H (Negative) Urine Urobilinogen 0.2 Cancelled (0.2) E.U./dL Ur Leukocyte Esterase 2+ H Cancelled (NEGATIVE) Urine RBC 1-5/hpf Cancelled (0-5/HPF) Urine WBC >100/hpf H Cancelled (0-5/HPF) Ur Squamous Epith Cells 5-10 /hpf H Cancelled (0-5/HPF) Ur Transition Epith Cell Market Maker Cancelled Ur Renal Epithelial Cell Market Maker Cancelled Calcium Oxalate Crystal Market Maker Cancelled Uric Acid Crystals Market Maker Cancelled Triple Phos Crystals Market Maker Cancelled Other Crystals Market Maker Cancelled Amorphous Sediment Market Maker Cancelled Urine Bacteria Many (>30) H Cancelled (None) Hyaline Casts 5-10/lpf Cancelled (None) Granular Casts Market Maker Cancelled RBC Casts Market Maker Cancelled WBC Casts Market Maker Cancelled Other Casts Market Maker Cancelled Urine Mucus 1+ H Cancelled (Negative) Urine Trichomonas Market Maker Cancelled Urine Yeast Market Maker Cancelled Urine Sperm Market Maker Cancelled Ur Culture Indicated? Specimen cultured Cancelled Micro UA Comment Market Maker Cancelled Imaging Data Abdominal x-ray: Radiologist's impression: Shantell Hunter F 78 F [address] [address] XRay Report Signed Patient: Shantell Hunter FMR#: [id number] : 1940cct:[id number] Age/Sex: 78 / FDate of Service: 12/22/18 Loc: ED Accession Number: [id number] Procedure: XR acute abdomen series Ordering Provider: Kristie Benjamin PROCEDURE: XR ACUTE ABDOMEN SERIES INDICATIONS: dysphagia TECHNIQUE: One view chest and two views of the abdomen were acquired. COMPARISON: [facility], , CHEST 1 VIEW, 10/07/2016, 14:22. [facility], KUB XRAY (1 VIEW ABDOMEN), 07/05/2015, 9:29. [facility], , ABDOMEN ACUTE SERIES, 10/23/2015, 16:27. FINDINGS: Surgical changes and devices: Epigastric clips are seen. Cholecystectomy clips are seen. anastomotic staple lines are seen on the right. Chest: Lungs are clear. Heart size is normal. No pleural effusions. No pneumoperitoneum. Abdomen: Bowel gas pattern is normal. No suspicious calcifications. Visualized solid organ contours appear normal. Bones: No suspicious bony lesions. Prominent calcifications can be seen involving the soft tissues of the buttocks and the proximal thighs, as before. IMPRESSION: Clear lungs. Nonobstructive bowel gas pattern. Postoperative changes are seen. Prominent soft tissue calcification again seen. Dictated by: Min Kaur M.D. on 12/22/2018 at 12:00 Approved by: Min Kaur M.D. on 12/22/2018 at 12:01 [facility] Narrative Medical decision making narrative: The patient is a 78-year-old female who presents for chief complaint of inability to swallow fluids. She states occasion that she has not been able to keep her fluids down for days, but presents well-hydrated with moist mucous membranes. Her lab work is grossly stable. The patient had a negative acute abdomen x-ray, showing clear lungs and no small-bowel obstruction. The patient received Zofran in the emergency department, and states that this was very helpful for her. She was able to tolerate several packages of apple juice, apple sauce and water in the emergency department. The she can keep down oral food and fluids very well. I encouraged her to follow up with her PCP in the next few days, especially given that this is a chronic multi year issue. The patient may benefit from further workup for her dysphagia. Discussed coming back to the ER for any acute concerns such as inability keep down fluids or dehydration. The patient does have signs of urinary tract infection at this time on her urinalysis, but she is already taking ciprofloxacin and denies symptoms, so I will not change anything at this point time. Encourage PCP follow-up with the next few days. Patient and have no questions or concerns upon discharge. <Annette Palmer, DO - Last Filed: 12/30/18 20:25> Lab Data Lab Results 12/22/18 12/22/18 12/22/18 Range/Units 13:51 13:51 14:05 WBC 7.7 (4.5-11.0) X10^3/uL RBC 4.76 (4.0-5.2) X10^6/uL Hgb 14.5 (12.0-16.0) g/dL Hct 43.6 (36-46) % MCV 91.6 (80-100) fL MCH 30.5 (26-34) PG MCHC 33.3 (30-36) % RDW 13.6 (11.6-14.8) % Plt Count 289 (150-400) X10^3/uL Neut % (Auto) 68.9 (50-75) % Lymph % (Auto) 21.3 L (25-40) % [place] % (Auto) 7.3 (3-14) % Eos % (Auto) 1.8 L (2-4) % Baso % (Auto) 0.7 (0-2) % Neut # (Auto) 5300 (2778-9425) /uL Lymph # (Auto) 1600 (8051-1915) /uL [place] # (Auto) 600 (0-900) /uL Eos # (Auto) 100 (0-450) /uL Baso # (Auto) 100 (0-100) /uL Sodium 142 (137-145) mmol/L Potassium 4.1 (3.4-5.1) mmol/L Chloride 107 (98-107) mmol/L Carbon Dioxide 18 L (22-32) mmol/L BUN 19 H (7-17) mg/dL Creatinine 1.00 (0.52-1.04) mg/dL Estimated GFR 53.5 L (>60) mL/min BUN/Creatinine Ratio 19.0 (6-22) Glucose 81 (80-110) mg/dL Lactate 0.9 (0.7-2.1) mmol/L Calcium 10.1 (8.4-10.2) mg/dL Total Bilirubin 0.8 (0.2-1.3) mg/dL AST 26 (14-36) IU/L ALT 11 (9-52) IU/L Alkaline Phosphatase 73 (38-126) U/L Total Protein 7.7 (6.3-8.2) g/dL Albumin 4.6 (3.5-5.0) g/dL Globulin 3.1 (1.7-4.1) g/dL Albumin/Globulin Ratio 1.5 (1.0-2.8) Amylase 84 (30-110) U/L Lipase 59 (23-300) U/L Urine Color Urine Appearance Urine pH (4.5-8.0) Ur Specific [place] (1.000-1.035) Urine Protein (Negative) Urine Glucose (UA) (Negative) g/dL Urine Ketones (NEGATIVE) Urine Occult Blood (Negative) Urine Nitrate (Negative) Urine Bilirubin (NEGATIVE) Urine Ictotest (Negative) Urine Urobilinogen (0.2) E.U./dL Ur Leukocyte Esterase (NEGATIVE) Urine RBC (0-5/HPF) Urine WBC (0-5/HPF) Ur Squamous Epith Cells (0-5/HPF) Ur Transition Epith Cell Ur Renal Epithelial Cell Calcium Oxalate Crystal Uric Acid Crystals Triple Phos Crystals Other Crystals Amorphous Sediment Urine Bacteria (None) Hyaline Casts (None) Granular Casts RBC Casts WBC Casts Other Casts Urine Mucus (Negative) Urine Trichomonas Urine Yeast Urine Sperm Ur Culture Indicated? Micro UA Comment 12/22/18 12/22/18 Range/Units 15:39 15:39 WBC (4.5-11.0) X10^3/uL RBC (4.0-5.2) X10^6/uL Hgb (12.0-16.0) g/dL Hct (36-46) % MCV (80-100) fL MCH (26-34) PG MCHC (30-36) % RDW (11.6-14.8) % Plt Count (150-400) X10^3/uL Neut % (Auto) (50-75) % Lymph % (Auto) (25-40) % [place] % (Auto) (3-14) % Eos % (Auto) (2-4) % Baso % (Auto) (0-2) % Neut # (Auto) (3272-4716) /uL Lymph # (Auto) (1114-8893) /uL [place] # (Auto) (0-900) /uL Eos # (Auto) (0-450) /uL Baso # (Auto) (0-100) /uL Sodium (137-145) mmol/L Potassium (3.4-5.1) mmol/L Chloride (98-107) mmol/L Carbon Dioxide (22-32) mmol/L BUN (7-17) mg/dL Creatinine (0.52-1.04) mg/dL Estimated GFR (>60) mL/min BUN/Creatinine Ratio (6-22) Glucose (80-110) mg/dL Lactate (0.7-2.1) mmol/L Calcium (8.4-10.2) mg/dL Total Bilirubin (0.2-1.3) mg/dL AST (14-36) IU/L ALT (9-52) IU/L Alkaline Phosphatase (38-126) U/L Total Protein (6.3-8.2) g/dL Albumin (3.5-5.0) g/dL Globulin (1.7-4.1) g/dL Albumin/Globulin Ratio (1.0-2.8) Amylase (30-110) U/L Lipase (23-300) U/L Urine Color Yellow Cancelled Urine Appearance Slightly cloudy Cancelled Urine pH 5.5 Cancelled (4.5-8.0) Ur Specific [place] 1.025 Cancelled (1.000-1.035) Urine Protein 1+ H Cancelled (Negative) Urine Glucose (UA) Negative Cancelled (Negative) g/dL Urine Ketones 3+ H Cancelled (NEGATIVE) Urine Occult Blood Trace-intact Cancelled (Negative) Urine Nitrate Negative Cancelled (Negative) Urine Bilirubin 2+ H Cancelled (NEGATIVE) Urine Ictotest Positive H (Negative) Urine Urobilinogen 0.2 Cancelled (0.2) E.U./dL Ur Leukocyte Esterase 2+ H Cancelled (NEGATIVE) Urine RBC 1-5/hpf Cancelled (0-5/HPF) Urine WBC >100/hpf H Cancelled (0-5/HPF) Ur Squamous Epith Cells 5-10 /hpf H Cancelled (0-5/HPF) Ur Transition Epith Cell Market Maker Cancelled Ur Renal Epithelial Cell Market Maker Cancelled Calcium Oxalate Crystal Market Maker Cancelled Uric Acid Crystals Market Maker Cancelled Triple Phos Crystals Market Maker Cancelled Other Crystals Market Maker Cancelled Amorphous Sediment Market Maker Cancelled Urine Bacteria Many (>30) H Cancelled (None) Hyaline Casts 5-10/lpf Cancelled (None) Granular Casts Market Maker Cancelled RBC Casts Market Maker Cancelled WBC Casts Market Maker Cancelled Other Casts Market Maker Cancelled Urine Mucus 1+ H Cancelled (Negative) Urine Trichomonas Market Maker Cancelled Urine Yeast Market Maker Cancelled Urine Sperm Market Maker Cancelled Ur Culture Indicated? Specimen cultured Cancelled Micro UA Comment Market Maker Cancelled Discharge Plan Departure Patient Disposition: Home Clinical Impression: Difficulty swallowing Qualifiers: Dysphagia type: unspecified Qualified Code(s): R13.10 - Dysphagia, unspecified Discharge Date/Time: 12/22/18 16:56 Interventions: ED Discharge Assessment Last Done: 12/22/18 16:55 Instructions: DI for Esophageal Dysphagia, DI for Oropharyngeal Dysphagia Activity Restrictions/Additional Instructions: Please follow up with your primary care provider soon as possible. You are tolerating food and fluids well in the emergency department. Please come back to emergency department for any acute concerns such as inability keep down fluids. We have sent off a urine culture, but I am not changing antibiotics as you are already on antibiotics for urinary tract infection. Please take small amounts of fluid frequently, do not drink large amounts once. Prescriptions: New ondansetron 4 mg tablet,disintegrating 4 mg PO Q6H PRN (Reason: nausea and vomiting) Qty: 20 RF: 0 No Action latanoprost 0.005 % Drops 1 drp ophthalmic (eye) QHS RF: 0 pantoprazole 40 mg Tablet,Delayed Release (Dr/Ec) 40 mg PO DAILY RF: 0 Referrals: Rylan Dasilva MD [Primary Care Provider] - <Annette Palmer DO - Last Filed: 12/30/18 20:25> Cosign ED Attending Fredericature Attestation: I was immediately available in the department for consultation. Documentation has been reviewed. I agree with assessment and plan.
--- NOTE | 2018-12-22 13:27 | ED_ITS ---
HPI - URI/Sore Throat <Kristie Benjamin, ROOF FIXER-BC - Last Filed: 12/22/18 17:39> General Chief Complaint: Upper Respiratory Symptoms Stated Complaint: unable to get food down/stuck in throat Time Seen by Provider: 12/22/18 12:29 Source: patient and family Mode of arrival: wheelchair Limitations: no limitations History of Present Illness HPI Narrative: The patient is a 78-year-old female with her for chief complaint of difficulty swallowing. She states that she is having trouble swal lowing food and secretions. She states initially states she was able to swallow her own secretions until this morning, but then states that she has not been able swelling the fluid for 3 days. She denies any cough, congestion, abdominal pain, nausea vomiting or diarrhea. She states that she had some discomfort yesterday, when she became ?stopped up.She states that this happens frequently, and that she is able to tolerate fluids frequently, however she states that has not gone on this long in a while. Patient denies any lightheadedness, dizziness. She states that she does not have any cough or shortness of breath, but states that she has increased risk of aspiration pneumonia due to her swallowing difficulties. She states that her issues from more of a spasm, and she does not have a food bolus. She states that she has not had an endoscopy done, but that she has an appointment scheduled with her PCP coming up for further testing. She states that she has not had a bowel movement for several days, but this is normal for her. The patient states she is being treated for urinary tract infection with ciprofloxacin at this point in time Related Data Home Medications Medication Instructions Recorded Confirmed latanoprost 1 drp OPHTHALMIC (EYE) QHS 10/12/17 10/12/17 pantoprazole 40 mg PO DAILY 10/12/17 10/12/17 Previous Rx's Medication Instructions Recorded ondansetron 4 mg PO Q6H PRN #20 tab 12/22/18 Allergies Allergy/AdvReac Type Severity Reaction Status Date / Time codeine [CODEINE] Allergy Severe HAND Verified 10/12/17 22:24 SWELLING Penicillins [PENICILLINS] Allergy Severe ITCH Verified 10/12/17 22:24 trimethoprim [From BACTRIM] Allergy Severe N/V, Verified 10/12/17 22:24 BREATHING PROBLEMS sulfamethoxazole Allergy Mild N/V Verified 10/12/17 22:24 [From BACTRIM] clindamycin [CLINDAMYCIN] Allergy Unknown PT UNSURE Verified 10/12/17 22:24 gentamicin [GENTAMICIN] Allergy Unknown PT UNSURE Verified 10/12/17 22:24 ALL THE CILLINS Allergy Severe ITCH Uncoded 08/30/17 11:56 IV CONTRAST DYE Allergy Severe RASH, Uncoded 08/30/17 11:56 SWEATING RAW CELERY Allergy Severe ANAPHYLAXIS Uncoded 08/30/17 11:56 Review of Systems <FRANCINE Gonsales - Last Filed: 12/22/18 17:39> Review of Systems GENERAL: Denies chills, fatigue, malaise, fever, sweats. HEENT: See HPI RESPIRATORY: Denies dyspnea, cough, wheezing, hemoptysis, sputum. CARDIOVASCULAR: Denies chest pain, palpitations, orthopnea, edema, GASTROINTESTINAL: See HPI : Denies dysuria, frequency, incontinence, hematuria, urinary retention. MUSCULOSKELETAL: denies weakness, joint pain, or bony pain SKIN: Denies rash, skin lesions, or other NEUROLOGIC: Denies weakness, headache, numbness, change in speech, confusion, seizures, incoordination. PSYCHIATRIC: No concerning psychosocial issues. 12 point review of systems is negative except for those stated above PFSH <FRANCINE Gonsales - Last Filed: 12/22/18 17:39> Social History household members: spouse lives independently: Yes other: Family history was noncontributory. Smoking Status: Never smoker Social History household members: spouse lives independently: Yes other: Family history was noncontributory. Smoking Status: Never smoker Exam <FRANCINE Gonsales - Last Filed: 12/22/18 17:39> Narrative Exam Narrative: GENERAL: This is a well-nourished, well-developed patient, no acute distress HEAD: Atraumatic. Normocephalic. No temporal or scalp tenderness. EYES: Pupils equal round and reactive. Extraocular motions intact. No scleral icterus. No injection or drainage. ENT: Nose without bleeding, purulent drainage or septal hematoma. Throat without erythema, tonsillar hypertrophy or exudate. Uvula midline. Airway patent. Moist mucous membranes present. NECK: Trachea midline. No JVD or lymphadenopathy. Supple, nontender, no meningeal signs. CARDIOVASCULAR: Regular rate and rhythm without murmurs, gallops, or rubs. RESPIRATORY: Clear to auscultation. Breath sounds equal bilaterally. No wheezes, rales, or rhonchi. No cough. No increased respiratory effort. No accessory muscle use. GASTROINTESTINAL: Abdomen soft, non-tender, nondistended. No hepato- splenomegaly, or palpable masses. No guarding. Active bowel sounds all 4 quadrants. EXTREMITIES: No clubbing, cyanosis, or edema. No joint tenderness, effusion, or edema noted. BACK: Nontender without deformity or crepitance. No flank tenderness. NEURO: AOx3. SKIN: No rash or erythema. Initial Vital Signs Initial Vital Signs: Vital Signs Temperature 98.1 F 12/22/18 12:20 Pulse Rate 100 H 12/22/18 12:20 Respiratory Rate 18 12/22/18 12:20 Blood Pressure 131/80 12/22/18 12:20 Pulse Oximetry 98 12/22/18 12:20 <Annette Palmer DO - Last Filed: 12/30/18 20:25> Initial Vital Signs Initial Vital Signs: Vital Signs Temperature 98.1 F 12/22/18 12:20 Pulse Rate 100 H 12/22/18 12:20 Respiratory Rate 18 12/22/18 12:20 Blood Pressure 131/80 12/22/18 12:20 Pulse Oximetry 98 12/22/18 12:20 Course <FRANCINE Gonsales - Last Filed: 12/22/18 17:39> Orders Ordered: Discontinued Medications Sodium Chloride (Normal Saline 0.9%) 1,000 mls @ 250 mls/hr IV CONT IESHA Last Infusion: 12/22/18 16:24 Dose: 0 mls/hr Admin: 12/22/18 13:49 Dose: 250 mls/hr Ondansetron HCl (Zofran) 4 mg IV NOW ONE Stop: 12/22/18 15:08 Last Admin: 12/22/18 15:11 Dose: 4 mg Vital Signs - 8 hr 12/22/18 12:20 12/22/18 14:00 12/22/18 16:55 Temperature 98.1 F Pulse Rate 100 H 83 80 Respiratory Rate 18 15 20 Blood Pressure 131/80 160/69 H Blood Pressure [Right Arm] 129/95 H Pulse Oximetry 98 97 98 <Annette Palmer DO - Last Filed: 12/30/18 20:25> Orders Ordered: Discontinued Medications Sodium Chloride (Normal Saline 0.9%) 1,000 mls @ 250 mls/hr IV CONT IESHA Last Infusion: 12/22/18 16:24 Dose: 0 mls/hr Admin: 12/22/18 13:49 Dose: 250 mls/hr Ondansetron HCl (Zofran) 4 mg IV NOW ONE Stop: 12/22/18 15:08 Last Admin: 12/22/18 15:11 Dose: 4 mg Vital Signs - 8 hr 12/22/18 12:20 12/22/18 14:00 12/22/18 16:55 Temperature 98.1 F Pulse Rate 100 H 83 80 Respiratory Rate 18 15 20 Blood Pressure 131/80 160/69 H Blood Pressure [Right Arm] 129/95 H Pulse Oximetry 98 97 98 MDM - URI/Sore Throat <RONNI Gonsales-BC - Last Filed: 12/22/18 17:39> Lab Data Result diagrams: 12/22/18 13:51 12/22/18 13:51 Lab Results 12/22/18 12/22/18 12/22/18 Range/Units 13:51 13:51 14:05 WBC 7.7 (4.5-11.0) X10^3/uL RBC 4.76 (4.0-5.2) X10^6/uL Hgb 14.5 (12.0-16.0) g/dL Hct 43.6 (36-46) % MCV 91.6 (80-100) fL MCH 30.5 (26-34) PG MCHC 33.3 (30-36) % RDW 13.6 (11.6-14.8) % Plt Count 289 (150-400) X10^3/uL Neut % (Auto) 68.9 (50-75) % Lymph % (Auto) 21.3 L (25-40) % Mellette % (Auto) 7.3 (3-14) % Eos % (Auto) 1.8 L (2-4) % Baso % (Auto) 0.7 (0-2) % Neut # (Auto) 5300 (8569-7991) /uL Lymph # (Auto) 1600 (9030-7257) /uL Mellette # (Auto) 600 (0-900) /uL Eos # (Auto) 100 (0-450) /uL Baso # (Auto) 100 (0-100) /uL Sodium 142 (137-145) mmol/L Potassium 4.1 (3.4-5.1) mmol/L Chloride 107 (98-107) mmol/L Carbon Dioxide 18 L (22-32) mmol/L BUN 19 H (7-17) mg/dL Creatinine 1.00 (0.52-1.04) mg/dL Estimated GFR 53.5 L (>60) mL/min BUN/Creatinine Ratio 19.0 (6-22) Glucose 81 (80-110) mg/dL Lactate 0.9 (0.7-2.1) mmol/L Calcium 10.1 (8.4-10.2) mg/dL Total Bilirubin 0.8 (0.2-1.3) mg/dL AST 26 (14-36) IU/L ALT 11 (9-52) IU/L Alkaline Phosphatase 73 (38-126) U/L Total Protein 7.7 (6.3-8.2) g/dL Albumin 4.6 (3.5-5.0) g/dL Globulin 3.1 (1.7-4.1) g/dL Albumin/Globulin Ratio 1.5 (1.0-2.8) Amylase 84 (30-110) U/L Lipase 59 (23-300) U/L Urine Color Urine Appearance Urine pH (4.5-8.0) Ur Specific Delmar (1.000-1.035) Urine Protein (Negative) Urine Glucose (UA) (Negative) g/dL Urine Ketones (NEGATIVE) Urine Occult Blood (Negative) Urine Nitrate (Negative) Urine Bilirubin (NEGATIVE) Urine Ictotest (Negative) Urine Urobilinogen (0.2) E.U./dL Ur Leukocyte Esterase (NEGATIVE) Urine RBC (0-5/HPF) Urine WBC (0-5/HPF) Ur Squamous Epith Cells (0-5/HPF) Ur Transition Epith Cell Ur Renal Epithelial Cell Calcium Oxalate Crystal Uric Acid Crystals Triple Phos Crystals Other Crystals Amorphous Sediment Urine Bacteria (None) Hyaline Casts (None) Granular Casts RBC Casts WBC Casts Other Casts Urine Mucus (Negative) Urine Trichomonas Urine Yeast Urine Sperm Ur Culture Indicated? Micro UA Comment 12/22/18 12/22/18 Range/Units 15:39 15:39 WBC (4.5-11.0) X10^3/uL RBC (4.0-5.2) X10^6/uL Hgb (12.0-16.0) g/dL Hct (36-46) % MCV (80-100) fL MCH (26-34) PG MCHC (30-36) % RDW (11.6-14.8) % Plt Count (150-400) X10^3/uL Neut % (Auto) (50-75) % Lymph % (Auto) (25-40) % Mellette % (Auto) (3-14) % Eos % (Auto) (2-4) % Baso % (Auto) (0-2) % Neut # (Auto) (3877-6906) /uL Lymph # (Auto) (1579-6685) /uL Mellette # (Auto) (0-900) /uL Eos # (Auto) (0-450) /uL Baso # (Auto) (0-100) /uL Sodium (137-145) mmol/L Potassium (3.4-5.1) mmol/L Chloride (98-107) mmol/L Carbon Dioxide (22-32) mmol/L BUN (7-17) mg/dL Creatinine (0.52-1.04) mg/dL Estimated GFR (>60) mL/min BUN/Creatinine Ratio (6-22) Glucose (80-110) mg/dL Lactate (0.7-2.1) mmol/L Calcium (8.4-10.2) mg/dL Total Bilirubin (0.2-1.3) mg/dL AST (14-36) IU/L ALT (9-52) IU/L Alkaline Phosphatase (38-126) U/L Total Protein (6.3-8.2) g/dL Albumin (3.5-5.0) g/dL Globulin (1.7-4.1) g/dL Albumin/Globulin Ratio (1.0-2.8) Amylase (30-110) U/L Lipase (23-300) U/L Urine Color Yellow Cancelled Urine Appearance Slightly cloudy Cancelled Urine pH 5.5 Cancelled (4.5-8.0) Ur Specific Delmar 1.025 Cancelled (1.000-1.035) Urine Protein 1+ H Cancelled (Negative) Urine Glucose (UA) Negative Cancelled (Negative) g/dL Urine Ketones 3+ H Cancelled (NEGATIVE) Urine Occult Blood Trace-intact Cancelled (Negative) Urine Nitrate Negative Cancelled (Negative) Urine Bilirubin 2+ H Cancelled (NEGATIVE) Urine Ictotest Positive H (Negative) Urine Urobilinogen 0.2 Cancelled (0.2) E.U./dL Ur Leukocyte Esterase 2+ H Cancelled (NEGATIVE) Urine RBC 1-5/hpf Cancelled (0-5/HPF) Urine WBC >100/hpf H Cancelled (0-5/HPF) Ur Squamous Epith Cells 5-10 /hpf H Cancelled (0-5/HPF) Ur Transition Epith Cell Separations Scientist Cancelled Ur Renal Epithelial Cell Separations Scientist Cancelled Calcium Oxalate Crystal Separations Scientist Cancelled Uric Acid Crystals Separations Scientist Cancelled Triple Phos Crystals Separations Scientist Cancelled Other Crystals Separations Scientist Cancelled Amorphous Sediment Separations Scientist Cancelled Urine Bacteria Many (>30) H Cancelled (None) Hyaline Casts 5-10/lpf Cancelled (None) Granular Casts Separations Scientist Cancelled RBC Casts Separations Scientist Cancelled WBC Casts Separations Scientist Cancelled Other Casts Separations Scientist Cancelled Urine Mucus 1+ H Cancelled (Negative) Urine Trichomonas Separations Scientist Cancelled Urine Yeast Separations Scientist Cancelled Urine Sperm Separations Scientist Cancelled Ur Culture Indicated? Specimen cultured Cancelled Micro UA Comment Separations Scientist Cancelled Imaging Data Abdominal x-ray: Radiologist's impression: Shantell Hunter F 78 F [address] [id number] XRay Report Signed Patient: Shantell Hunter FMR#: [id number] : 9Acct:[id number] Age/Sex: 78 / FDate of Service: 12/22/18 Loc: ED Accession Number: [id number] Procedure: XR acute abdomen series Ordering Provider: Kristie Benjamin PROCEDURE: XR ACUTE ABDOMEN SERIES INDICATIONS: dysphagia TECHNIQUE: One view chest and two views of the abdomen were acquired. COMPARISON: [facility], , CHEST 1 VIEW, 10/07/2016, 14:22. [facility], KUB XRAY (1 VIEW ABDOMEN), 07/05/2015, 9:29. [facility], ABDOMEN ACUTE SERIES, 10/23/2015, 16:27. FINDINGS: Surgical changes and devices: Epigastric clips are seen. Cholecystectomy clips are seen. anastomotic staple lines are seen on the right. Chest: Lungs are clear. Heart size is normal. No pleural effusions. No pneumoperitoneum. Abdomen: Bowel gas pattern is normal. No suspicious calcifications. Visualized solid organ contours appear normal. Bones: No suspicious bony lesions. Prominent calcifications can be seen involving the soft tissues of the buttocks and the proximal thighs, as before. IMPRESSION: Clear lungs. Nonobstructive bowel gas pattern. Postoperative changes are seen. Prominent soft tissue calcification again seen. Dictated by: Min Kaur M.D. on 12/22/2018 at 12:00 Approved by: Min Kaur M.D. on 12/22/2018 at 12:01 [facility] [place] Narrative Medical decision making narrative: The patient is a 78-year-old female who presents for chief complaint of inability to swallow fluids. She states occasion that she has not been able to keep her fluids down for days, but presents well-hydrated with moist mucous membranes. Her lab work is grossly stable. The patient had a negative acute abdomen x-ray, showing clear lungs and no small-bowel obstruction. The patient received Zofran in the emergency department, and states that this was very helpful for her. She was able to tolerate several packages of apple juice, apple sauce and water in the emergency department. The she can keep down oral food and fluids very well. I encouraged her to follow up with her PCP in the next few days, especially given that this is a chronic multi year issue. The patient may benefit from further workup for her dysphagia. Discussed coming back to the ER for any acute concerns such as inability keep down fluids or dehydration. The patient does have signs of urin erick tract infection at this time on her urinalysis, but she is already taking ciprofloxacin and denies symptoms, so I will not change anything at this point time. Encourage PCP follow-up with the next few days. Patient and have no questions or concerns upon discharge. <Annette Botnick, DO - Last Filed: 12/30/18 20:25> Lab Data Lab Results 12/22/18 12/22/18 12/22/18 Range/Units 13:51 13:51 14:05 WBC 7.7 (4.5-11.0) X10^3/uL RBC 4.76 (4.0-5.2) X10^6/uL Hgb 14.5 (12.0-16.0) g/dL Hct 43.6 (36-46) % MCV 91.6 (80-100) fL MCH 30.5 (26-34) PG MCHC 33.3 (30-36) % RDW 13.6 (11.6-14.8) % Plt Count 289 (150-400) X10^3/uL Neut % (Auto) 68.9 (50-75) % Lymph % (Auto) 21.3 L (25-40) % Mellette % (Auto) 7.3 (3-14) % Eos % (Auto) 1.8 L (2-4) % Baso % (Auto) 0.7 (0-2) % Neut # (Auto) 5300 (4396-1141) /uL Lymph # (Auto) 1600 (6932-8677) /uL Mellette # (Auto) 600 (0-900) /uL Eos # (Auto) 100 (0-450) /uL Baso # (Auto) 100 (0-100) /uL Sodium 142 (137-145) mmol/L Potassium 4.1 (3.4-5.1) mmol/L Chloride 107 (98-107) mmol/L Carbon Dioxide 18 L (22-32) mmol/L BUN 19 H (7-17) mg/dL Creatinine 1.00 (0.52-1.04) mg/dL Estimated GFR 53.5 L (>60) mL/min BUN/Creatinine Ratio 19.0 (6-22) Glucose 81 (80-110) mg/dL Lactate 0.9 (0.7-2.1) mmol/L Calcium 10.1 (8.4-10.2) mg/dL Total Bilirubin 0.8 (0.2-1.3) mg/dL AST 26 (14-36) IU/L ALT 11 (9-52) IU/L Alkaline Phosphatase 73 (38-126) U/L Total Protein 7.7 (6.3-8.2) g/dL Albumin 4.6 (3.5-5.0) g/dL Globulin 3.1 (1.7-4.1) g/dL Albumin/Globulin Ratio 1.5 (1.0-2.8) Amylase 84 (30-110) U/L Lipase 59 (23-300) U/L Urine Color Urine Appearance Urine pH (4.5-8.0) Ur Specific Delmar (1.000-1.035) Urine Protein (Negative) Urine Glucose (UA) (Negative) g/dL Urine Ketones (NEGATIVE) Urine Occult Blood (Negative) Urine Nitrate (Negative) Urine Bilirubin (NEGATIVE) Urine Ictotest (Negative) Urine Urobilinogen (0.2) E.U./dL Ur Leukocyte Esterase (NEGATIVE) Urine RBC (0-5/HPF) Urine WBC (0-5/HPF) Ur Squamous Epith Cells (0-5/HPF) Ur Transition Epith Cell Ur Renal Epithelial Cell Calcium Oxalate Crystal Uric Acid Crystals Triple Phos Crystals Other Crystals Amorphous Sediment Urine Bacteria (None) Hyaline Casts (None) Granular Casts RBC Casts WBC Casts Other Casts Urine Mucus (Negative) Urine Trichomonas Urine Yeast Urine Sperm Ur Culture Indicated? Micro UA Comment 12/22/18 12/22/18 Range/Units 15:39 15:39 WBC (4.5-11.0) X10^3/uL RBC (4.0-5.2) X10^6/uL Hgb (12.0-16.0) g/dL Hct (36-46) % MCV (80-100) fL MCH (26-34) PG MCHC (30-36) % RDW (11.6-14.8) % Plt Count (150-400) X10^3/uL Neut % (Auto) (50-75) % Lymph % (Auto) (25-40) % Mellette % (Auto) (3-14) % Eos % (Auto) (2-4) % Baso % (Auto) (0-2) % Neut # (Auto) (8662-6609) /uL Lymph # (Auto) (2643-2363) /uL Mellette # (Auto) (0-900) /uL Eos # (Auto) (0-450) /uL Baso # (Auto) (0-100) /uL Sodium (137-145) mmol/L Potassium (3.4-5.1) mmol/L Chloride (98-107) mmol/L Carbon Dioxide (22-32) mmol/L BUN (7-17) mg/dL Creatinine (0.52-1.04) mg/dL Estimated GFR (>60) mL/min BUN/Creatinine Ratio (6-22) Glucose (80-110) mg/dL Lactate (0.7-2.1) mmol/L Calcium (8.4-10.2) mg/dL Total Bilirubin (0.2-1.3) mg/dL AST (14-36) IU/L ALT (9-52) IU/L Alkaline Phosphatase (38-126) U/L Total Protein (6.3-8.2) g/dL Albumin (3.5-5.0) g/dL Globulin (1.7-4.1) g/dL Albumin/Globulin Ratio (1.0-2.8) Amylase (30-110) U/L Lipase (23-300) U/L Urine Color Yellow Cancelled Urine Appearance Slightly cloudy Cancelled Urine pH 5.5 Cancelled (4.5-8.0) Ur Specific Delmar 1.025 Cancelled (1.000-1.035) Urine Protein 1+ H Cancelled (Negative) Urine Glucose (UA) Negative Cancelled (Negative) g/dL Urine Ketones 3+ H Cancelled (NEGATIVE) Urine Occult Blood Trace-intact Cancelled (Negative) Urine Nitrate Negative Cancelled (Negative) Urine Bilirubin 2+ H Cancelled (NEGATIVE) Urine Ictotest Positive H (Negative) Urine Urobilinogen 0.2 Cancelled (0.2) E.U./dL Ur Leukocyte Esterase 2+ H Cancelled (NEGATIVE) Urine RBC 1-5/hpf Cancelled (0-5/HPF) Urine WBC >100/hpf H Cancelled (0-5/HPF) Ur Squamous Epith Cells 5-10 /hpf H Cancelled (0-5/HPF) Ur Transition Epith Cell Separations Scientist Cancelled Ur Renal Epithelial Cell Separations Scientist Cancelled Calcium Oxalate Crystal Separations Scientist Cancelled Uric Acid Crystals Separations Scientist Cancelled Triple Phos Crystals Separations Scientist Cancelled Other Crystals Separations Scientist Cancelled Amorphous Sediment Separations Scientist Cancelled Urine Bacteria Many (>30) H Cancelled (None) Hyaline Casts 5-10/lpf Cancelled (None) Granular Casts Separations Scientist Cancelled RBC Casts Separations Scientist Cancelled WBC Casts Separations Scientist Cancelled Other Casts Separations Scientist Cancelled Urine Mucus 1+ H Cancelled (Negative) Urine Trichomonas Separations Scientist Cancelled Urine Yeast Separations Scientist Cancelled Urine Sperm Separations Scientist Cancelled Ur Culture Indicated? Specimen cultured Cancelled Micro UA Comment Separations Scientist Cancelled Discharge Plan Departure Patient Disposition: Home Clinical Impression: Difficulty swallowing Qualifiers: Dysphagia type: unspecified Qualified Code(s): R13.10 - Dysphagia, unspecified Discharge Date/Time: 12/22/18 16:56 Interventions: ED Discharge Assessment Last Done: 12/22/18 16:55 Instructions: DI for Esophageal Dysphagia, DI for Oropharyngeal Dysphagia Activity Restrictions/Additional Instructions: Please follow up with your primary care provider soon as possible. You are tolerating food and fluids well in the emergency department. Please come back to emergency department for any acute concerns such as inability keep down fluids. We have sent off a urine culture, but I am not changing antibiotics as you are already on antibiotics for urinary tract infection. Please take small amounts of fluid frequently, do not drink large amounts once. Prescriptions: New ondansetron 4 mg tablet,disintegrating 4 mg PO Q6H PRN (Reason: nausea and vomiting) Qty: 20 RF: 0 No Action latanoprost 0.005 % Drops 1 drp ophthalmic (eye) QHS RF: 0 pantoprazole 40 mg Tablet,Delayed Release (Dr/Ec) 40 mg PO DAILY RF: 0 Referrals: Rylan Dasilva MD [Primary Care Provider] - <Annette Palmer DO - Last Filed: 12/30/18 20:25> Cosign ED Attending Mar Attestation: I was immediately available in the department for consultation. Documentation has been reviewed. I agree with assessment and plan.
[2018-12-22] MEDS: SODIUM CHLORIDE 0.9% 1,000 ML 250 ML IV (13:49)
[2018-12-22 13:58] LABS: Add Manual Diff / Slide Review NO; Basophils Absolute Auto 100 /uL (0-100); Basophils Percent Auto 0.7 % (0-2); Eosinophils Absolute Auto 100 /uL (0-450); Eosinophils Percent Auto 1.8 % (2-4); Hematocrit 43.6 % (36-46); Hemoglobin 14.5 g/dL (12.0-16.0); Lymphocytes Absolute Auto 1600 /uL (1100-4500); Lymphocytes Percent Auto 21.3 % (25-40); Mean Corpuscular HGB Conc 33.3 % (30-36); Mean Corpuscular Hemoglobin 30.5 PG (26-34); Mean Corpuscular Volume 91.6 fL (80-100); Monocytes Absolute Auto 600 /uL (0-900); Monocytes Percent Auto 7.3 % (3-14); Neutrophils Absolute Auto 5300 /uL (1500-7000); Neutrophils Percent Auto 68.9 % (50-75); Platelet Count 289 X10^3/uL (150-400); Red Blood Cell Count 4.76 X10^6/uL (4.0-5.2); Red Cell Distribution Width 13.6 % (11.6-14.8); White Blood Cell Count 7.7 X10^3/uL (4.5-11.0)
[2018-12-22 14:00] VITALS: BP 129/95; PULSE 83; RESP 15; O2SAT 97
[2018-12-22 14:12] LABS: Alanine Aminotransferase 11 IU/L (9-52); Albumin 4.6 g/dL (3.5-5.0); Albumin Globulin Ratio 1.5 (1.0-2.8); Alkaline Phosphatase 73 U/L (38-126); Amylase 84 U/L (30-110); Aspartate Aminotransferase 26 IU/L (14-36); Bilirubin Total 0.8 mg/dL (0.2-1.3); Blood Urea Nitrogen 19 mg/dL (7-17); Calcium 10.1 mg/dL (8.4-10.2); Carbon Dioxide 18 mmol/L (22-32); Chloride 107 mmol/L (98-107); Estimated Glomerular Filt Rate 53.5 mL/min (>60); Globulin 3.1 g/dL (1.7-4.1); Glucose 81 mg/dL (80-110); HEMOLYSIS 33 (0-50); Lipase 59 U/L (23-300); Potassium 4.1 mmol/L (3.4-5.1); Sodium 142 mmol/L (137-145); Total Protein 7.7 g/dL (6.3-8.2)
[2018-12-22 14:20] LABS: Lactate (Lactic Acid) 0.9 mmol/L (0.7-2.1)
[2018-12-22] MEDS: ONDANSETRON 4 MG/2 ML INJ IV (15:11)
[2018-12-22 15:47] LABS: Bilirubin Urine UA 2+ (NEGATIVE); Color Urine UA YELLOW; Glucose Urine UA NEGATIVE (Negative); Ketones Urine UA 3+ (NEGATIVE); Leukocyte Esterase Urine UA 2+ (NEGATIVE); Nitrite Urine UA NEGATIVE (Negative); Occult Blood Urine UA TRACE-INTACT (Negative); Protein Urine UA 1+ (Negative); Specific Gravity Urine UA 1.025 (1.000-1.035); Urobilinogen Urine UA 0.2 E.U./dL (0.2); pH Urine UA 5.5 (4.5-8.0)
--- NOTE | 2018-12-22 15:56 | PC.NURSE ---
Pt is given applesauce and apple juice. Able to keep small amts in prior to me leaving room
[2018-12-22 16:00] LABS: Appearance Urine UA Slightly Cloudy
--- NOTE | 2018-12-22 16:02 | PC.NURSE ---
Ate an entire small container of applesauce and took a few sips
[2018-12-22 16:16] LABS: Bacteria Urine Many (>30); Culture Indicated Urine Specimen Cultured; Hyaline Casts Urine 5-10/LPF; Mucus Urine 1+ (Negative); RBC Urine 1-5/HPF (0-5/HPF); Squamous Epithelial Cell Urine 5-10 /HPF (0-5/HPF); WBC Urine >100/HPF (0-5/HPF)
[2018-12-22 16:26] LABS: Ictotest Urine Positive (Negative)
[2018-12-22 16:55] VITALS: BP 160/69; PULSE 80; RESP 20; O2SAT 98
== END 2018-12-22 16:56 | disposition home or self-care (01) ==
PROVIDERS: Emergency Provider Nurse Practitioner Family; PCP Internal Medicine
DX: R13.10 Dysphagia, unspecified (principal)
CPT/HCPCS: 36591; 74022; 80053; 81001; 82150; 83605; 83690; 85025; 87077; 87086; 87185; 87186; 96361; 96374; 99283; 99284; J2405

== ENCOUNTER 2021-03-12 10:07 | Inpatient (IN) | payer MEDICARE, BC, SELFPAY ==
[2017-10-12 16:05] VITALS: BMI 23.0
[2021-03-12] VITALS (20 sets, daily range): BP systolic 99–157; BP diastolic 63–91; PULSE 73–102; RESP 18–24; TEMP 35.6–36.4; O2SAT 92–99; BMI 22.6; BMI 22.8
--- NOTE | 2021-03-12 10:24 | ED_ITS ---
HPI - GI Bleed General Chief complaint: GI Bleed Stated complaint: Bloody stool Time Seen by Provider: 03/12/21 10:13 History of Present Illness HPI Narrative: Patient is an 81-year-old female history of multiple strokes on aspirin 81 mg, previous and GI bleed with history of colon polyps and massive GI bleed in 2016 requiring emergent colectomy. Presents today with 2 episodes of bright red blood per rectum. She is having some lower abdominal pain and cramping. She feels dizzy lightheaded and short of breath. She denies any nausea or vomiting. She said the 1st bowel movement was very large with multiple blood clots the 2nd 1 she had blood on the toilet paper. She was feeling well yesterday. Related Data Home Medications Medication Instructions Recorded Confirmed latanoprost 0.005 % eye drops 1 drp OPHTHALMIC (EYE) QHS 10/12/17 10/12/17 pantoprazole 40 mg tablet,delayed 40 mg PO DAILY 10/12/17 10/12/17 release Previous Rx's Medication Instructions Recorded ondansetron 4 mg disintegrating 4 mg PO Q6H PRN #20 tab 12/22/18 tablet Allergies Allergy/AdvReac Type Severity Reaction Status Date / Time codeine [CODEINE] Allergy Severe HAND Verified 03/12/21 10:39 SWELLING Penicillins [PENICILLINS] Allergy Severe ITCH Verified 03/12/21 10:39 trimethoprim [From BACTRIM] Allergy Severe N/V, Verified 03/12/21 10:39 BREATHING PROBLEMS sulfamethoxazole Allergy Mild N/V Verified 03/12/21 10:39 [From BACTRIM] clindamycin [CLINDAMYCIN] Allergy Unknown PT UNSURE Verified 03/12/21 10:39 gentamicin [GENTAMICIN] Allergy Unknown PT UNSURE Verified 03/12/21 10:39 ALL THE CILLINS Allergy Severe ITCH Uncoded 03/12/21 10:39 IV CONTRAST DYE Allergy Severe RASH, Uncoded 03/12/21 10:39 SWEATING RAW CELERY Allergy Severe ANAPHYLAXIS Uncoded 03/12/21 10:39 Review of Systems Review of Systems Narrative: GENERAL: Denies chills, fatigue, malaise, fever, sweats, travel HEENT: Denies sinus pain, ear pain, sore throat, difficulty swallowing, neck pain RESPIRATORY: Some shortness of breath CARDIOVASCULAR: Denies chest pain, palpitations, orthopnea, edema GASTROINTESTINAL: See HPI : Denies dysuria, frequency, incontinence, hematuria, urinary retention, flank pain. MUSCULOSKELETAL: Denies weakness, joint pain, or bony pain SKIN: No rash, no erythema, no pruritus NEUROLOGIC: Denies weakness, dizziness, headache, numbness, change in speech, confusion PSYCHIATRIC: No concerning psychosocial issues. 12 point review of systems is negative except for those stated above and HPI Patient History Social History household members: spouse lives independently: Yes other: Family history was noncontributory. Smoking Status: Never smoker Smoking Status: Never smoker alcohol intake frequency: 0-2 drinks per day Substance Use Type: does not use Exam Initial Vital Signs Initial Vital Signs: Vital Signs Pulse Rate 85 03/12/21 10:17 Pulse Oximetry 97 03/12/21 10:17 GENERAL: Alert well-appearing 81-year-old female in no acute distress. HEENT: Head atraumatic,EOMI, pupils reactive, face symmetric, moist mucous membranes CARDIOVASCULAR: Regular rate and rhythm without murmurs, rubs or gallops. RESPIRATORY: Breath sounds equal bilaterally, no wheezes rales or rhonchi. ABDOMEN: Soft, tender lower abdomen no guarding or rebound RECTAL: Gross Bright red blood per rectum with clots nontender : No CVA tenderness EXTREMITIES: Normal range of motion, no clubbing or edema. Neurovascularly intact NEUROLOGICAL: Alert and oriented x4.Normal gait and speech. SKIN: Warm, dry, no laceration, no petechiae, no rashes or lesions. Course Orders Ordered: ED Orders 03/12/21 10:25 XR chest 1V Stat EKG-12 Lead Stat 03/12/21 10:50 Complete Blood Count AUTO DIFF Stat Comprehensive Metabolic Panel Stat Lactate (Lactic Acid) Stat Lipase Stat Partial Thromboplastin Time Stat Prothrombin Time INR Stat Troponin & CK Cardiac Panel Stat Type and Screen Stat 03/12/21 11:49 CT abdomen pelvis w con Stat Discontinued Medications Diphenhydramine HCl (Diphenhydramine 50 Mg/Ml Vial) 25 mg IV NOW ONE Stop: 03/12/21 11:08 Last Admin: 03/12/21 11:30 Dose: 25 mg Documented by: TANESHA Methylprednisolone (Methylprednisolone 125 Mg/2 Ml Vial) 125 mg IV NOW ONE Stop: 03/12/21 11:08 Last Admin: 03/12/21 11:30 Dose: 125 mg Documented by: TANESHA Morphine Sulfate (Morphine 2 Mg/Ml Inj) 2 mg IV NOW ONE Stop: 03/12/21 11:10 Last Admin: 03/12/21 11:29 Dose: 2 mg Documented by: TANESHA Morphine Sulfate (Morphine 2 Mg/Ml Inj) 2 mg IV NOW ONE Stop: 03/12/21 12:48 Last Admin: 03/12/21 13:10 Dose: 2 mg Documented by: TANESHA Pantoprazole Sodium (Pantoprazole 40 Mg Vial) 40 mg IV NOW ONE Stop: 03/12/21 10:30 Last Admin: 03/12/21 10:59 Dose: 40 mg Documented by: TANESHA Vital Signs Vital signs: Vital Signs - 8 hr 03/12/21 10:17 03/12/21 10:18 03/12/21 10:30 Temperature Pulse Rate 85 85 81 Respiratory Rate Blood Pressure 157/87 H 129/71 Pulse Oximetry 97 94 95 03/12/21 10:31 03/12/21 11:00 03/12/21 11:30 Temperature 97.6 F Pulse Rate 102 H 86 79 Respiratory Rate 20 Blood Pressure 157/87 H 117/75 99/67 Pulse Oximetry 98 96 96 03/12/21 12:05 03/12/21 12:06 03/12/21 12:30 Temperature Pulse Rate 73 73 78 Respiratory Rate 22 20 Blood Pressure 157/80 H Pulse Oximetry 98 99 97 03/12/21 12:47 03/12/21 13:00 Temperature Pulse Rate 76 79 Respiratory Rate 24 Blood Pressure 138/69 140/80 Pulse Oximetry 96 96 MDM - GI Bleed Lab Data Result diagrams: 03/12/21 10:50 03/12/21 10:50 Labs: Lab Results 03/12/21 03/12/21 03/12/21 Range/Units 10:50 10:50 10:50 WBC 8.8 (4.5-11.0) X10^3/uL RBC 4.14 (4.0-5.2) X10^6/uL Hgb 12.1 (12.0-16.0) g/dL Hct 37.2 (36-46) % MCV 89.8 (80-100) fL MCH 29.3 (26-34) PG MCHC 32.6 (30-36) % RDW 15.0 H (11.6-14.8) % Plt Count 397 (150-400) X10^3/uL Neut % (Auto) 70.3 (50-75) % Lymph % (Auto) 16.9 L (25-40) % [place] % (Auto) 6.5 (3-14) % Eos % (Auto) 5.0 H (2-4) % Baso % (Auto) 1.3 (0-2) % Neut # (Auto) 6200 (9376-1510) /uL Lymph # (Auto) 1500 (4581-7177) /uL [place] # (Auto) 600 (0-900) /uL Eos # (Auto) 400 (0-450) /uL Baso # (Auto) 100 (0-100) /uL PT 10.8 (10.1-12.7) SECONDS INR 1.0 (0.9-1.3) APTT 33 (26.4-36.2) SECONDS Sodium 141 (137-145) mmol/L Potassium 4.0 (3.4-5.1) mmol/L Chloride 111 H (98-107) mmol/L Carbon Dioxide 18 L (22-32) mmol/L BUN 15 (7-17) mg/dL Creatinine 0.89 (0.52-1.04) mg/dL Estimated GFR > 60.0 (>60) mL/min BUN/Creatinine Ratio 16.9 (6-22) Glucose 141 H (80-110) mg/dL Lactate (0.7-2.1) mmol/L Calcium 10.0 (8.4-10.2) mg/dL Total Bilirubin 0.2 (0.2-1.3) mg/dL AST 38 H (14-36) IU/L ALT 40 H (<35) IU/L Alkaline Phosphatase 119 (38-126) U/L Total Creatine Kinase 30 (30-135) U/L CK-MB (CK-2) TNP CK-MB (CK-2) Rel Index TNP Troponin I < 0.012 (0.01-0.034) ng/mL Total Protein 7.1 (6.3-8.2) g/dL Albumin 4.0 (3.5-5.0) g/dL Globulin 3.1 (1.7-4.1) g/dL Albumin/Globulin Ratio 1.3 (1.0-2.8) Lipase 81 (23-300) U/L Blood Type Antibody Screen 03/12/21 03/12/21 Range/Units 10:50 10:50 WBC (4.5-11.0) X10^3/uL RBC (4.0-5.2) X10^6/uL Hgb (12.0-16.0) g/dL Hct (36-46) % MCV (80-100) fL MCH (26-34) PG MCHC (30-36) % RDW (11.6-14.8) % Plt Count (150-400) X10^3/uL Neut % (Auto) (50-75) % Lymph % (Auto) (25-40) % [place] % (Auto) (3-14) % Eos % (Auto) (2-4) % Baso % (Auto) (0-2) % Neut # (Auto) (4996-0465) /uL Lymph # (Auto) (4753-1176) /uL [place] # (Auto) (0-900) /uL Eos # (Auto) (0-450) /uL Baso # (Auto) (0-100) /uL PT (10.1-12.7) SECONDS INR (0.9-1.3) APTT (26.4-36.2) SECONDS Sodium (137-145) mmol/L Potassium (3.4-5.1) mmol/L Chloride (98-107) mmol/L Carbon Dioxide (22-32) mmol/L BUN (7-17) mg/dL Creatinine (0.52-1.04) mg/dL Estimated GFR (>60) mL/min BUN/Creatinine Ratio (6-22) Glucose (80-110) mg/dL Lactate 2.8 H (0.7-2.1) mmol/L Calcium (8.4-10.2) mg/dL Total Bilirubin (0.2-1.3) mg/dL AST (14-36) IU/L ALT (<35) IU/L Alkaline Phosphatase (38-126) U/L Total Creatine Kinase (30-135) U/L CK-MB (CK-2) CK-MB (CK-2) Rel Index Troponin I (0.01-0.034) ng/mL Total Protein (6.3-8.2) g/dL Albumin (3.5-5.0) g/dL Globulin (1.7-4.1) g/dL Albumin/Globulin Ratio (1.0-2.8) Lipase (23-300) U/L Blood Type A Positive Antibody Screen Negative Imaging Data CT scan - abdomen/pelvis: Radiologist's Impression: PROCEDURE:? CT ABDOMEN PELVIS W CON ? INDICATIONS:? GI bleed with hx colectomy ? TECHNIQUE:? After the administration of intravenous contrast, axial sections acquired from the lung bases to the pubic symphysis.? Coronal and sagittal reformats were performed.? For radiation dose reduction, the following was used:? automated exposure control, adjustment of mA and/or kV according to patient size.? ? COMPARISON:? None. ? FINDINGS:? Image quality:? Excellent.? ? Lung bases:? Unremarkable. Heart:? No significant findings. ? ABDOMEN: Liver:? Unremarkable.? ? Gallbladder:? Status post cholecystectomy. Biliary ducts:? There is diffuse elation of the intrahepatic and extrahepatic bile ducts to the level of the ampulla.? The common bile duct measures up to 18 mm in diameter. Pancreas:? No significant pancreatic ductal dilatation. Spleen:? Coarse calcifications are seen in the spleen.? ? Adrenal Glands:? There is mild thickening of the adrenal glands without a discrete nodule. Kidneys and Ureters:? Chronic cortical scarring is seen in the posterior right kidney.? Small renal cysts are noted.? No hydronephrosis. ? Stomach and Bowel:? Multiple diverticula are seen throughout the colon.? Pos tsurgical changes are seen from prior partial colectomy.? Surgical clips are seen near the gastroesophageal junction.? Mucosal hyperenhancement is seen within the descending and sigmoid colon and rectum as well as in the right colon.? The transverse colon is underdistended. Peritoneum:? No abnormal intraperitoneal fluid.? No free air.? ? Ventral Wall: ? No hernias.? Abdominal Nodes:? No retroperitoneal or mesenteric adenopathy by size criteria.? Vessels:? There is ectasia of the infrarenal abdominal aorta measuring up to 2.1 x 2.4 cm in diameter. ? PELVIS: Pelvic Organs:? Unremarkable.? ? Bladder:? Unremarkable.? ? Pelvic Nodes: No enlarged lymph nodes.? Miscellaneous: No hernias are seen. ? ? ? Bones:? There is grade 1 anterolisthesis of L4 on L5 secondary to facet hypertrophy.? Bulky calcifications in the subcutaneous tissues surrounding the hips are most likely injection granulomas. ? ? IMPRESSION:? 1. Postsurgical changes from partial right colectomy.? Multiple diverticula are seen in the colon without signs of acute diverticulitis.? Mild mucosal hyperenhancement involving the majority of the colon and rectum may be related to the timing of the contrast bolus versus a nonspecific proctocolitis.? No active contrast extravasation is seen within the bowel. ? 2. Diffuse dilation of the intrahepatic and extrahepatic bile ducts is seen to the level of the ampulla of Vater.? Findings are likely related to the prior cholecystectomy.? No choledocholith or obstructing mass is seen.? If indicated, MRCP could be obtained for further evaluation. ? ? Dictated by: Sreekanth Arizmendi M.D. on 03/12/2021 at 12:15 ? ? ECG Data Interpretation: Sinus rhythm rate 82 OK interval 164 QRS 120 QTC 462 right bundle branch block noted similar to previous EKG no ST changes MDM Narrative Medical decision making narrative: Patient has significant history for severe GI bleed requiring surgery and prior polyps, she is on aspirin 81 mg daily. She is grossly positive on exam. She has team symptomatic with dizziness lightheadedness and lower abdominal pain. However blood work is overall reassuring with mild elevation of lactic acid of 2.8. CT does not show any abnormality. Blood pressures have been relatively stable she does have 1 reading with his systolic 99 but the 2nd 1 was quickly back to normal. Initially mildly tachycardic however that has improved as well. She is given 1 dose of Protonix in the ED. 1242 Portal surgery updated patient's symptoms test results and happy to consult 1300 Dr. Savage, hospitalist updated patient's symptoms test results and accepts patient Discharge Plan Departure Patient Disposition: Admitted as Observation Clinical Impression: Rectal bleed Admit Date/Time: 03/12/21 13:18 Admit Provider: Abran Savage
--- NOTE | 2021-03-12 10:25 | DI.RAD.S_ITS ---
PROCEDURE: XR CHEST 1V INDICATIONS: short of breath TECHNIQUE: One view of the chest was acquired. COMPARISON: [facility], CR, XR ACUTE ABDOMEN SERIES, 12/22/2018, 12:45. [facility], CR, CHEST 1 VIEW, 10/07/2016, 14:22. [facility], CR, XR CHEST 2V, 10/12/2017, 11:16. FINDINGS: Surgical changes and devices: Epigastric clips are seen. Cholecystectomy clips are seen. Lungs and pleura: Lungs are clear. No pleural effusions or pneumothorax. Mediastinum: The cardiac contours are within normal limits. The aorta demonstrates calcification and tortuosity. Bones and chest wall: No suspicious bony lesions. Age-appropriate bony degenerative changes are seen. Overlying soft tissues appear unremarkable. IMPRESSION: Clear lungs. Postoperative and degenerative changes are seen. Dictated by: Min Kaur M.D. on 03/12/2021 at 9:43 Approved by: Min Kaur M.D. on 03/12/2021 at 9:44
[2021-03-12] MEDS: PANTOPRAZOLE 40 MG VIAL IV ×2 (10:59→20:16)
[2021-03-12 11:16] LABS: Prothrombin Time 10.8 SECONDS (10.1-12.7)
[2021-03-12 11:19] LABS: PTT Partial Thromboplastin Tim 33 SECONDS (26.4-36.2)
[2021-03-12 11:20] LABS: Add Manual Diff / Slide Review NO; Basophils Absolute Auto 100 /uL (0-100); Basophils Percent Auto 1.3 % (0-2); Eosinophils Absolute Auto 400 /uL (0-450); Hematocrit 37.2 % (36-46); Hemoglobin 12.1 g/dL (12.0-16.0); Lactate (Lactic Acid) 2.8 mmol/L (0.7-2.1); Lymphocytes Absolute Auto 1500 /uL (1100-4500); Lymphocytes Percent Auto 16.9 % (25-40); Mean Corpuscular HGB Conc 32.6 % (30-36); Mean Corpuscular Hemoglobin 29.3 PG (26-34); Mean Corpuscular Volume 89.8 fL (80-100); Monocytes Absolute Auto 600 /uL (0-900); Monocytes Percent Auto 6.5 % (3-14); Neutrophils Absolute Auto 6200 /uL (1500-7000); Neutrophils Percent Auto 70.3 % (50-75); Platelet Count 397 X10^3/uL (150-400); Red Blood Cell Count 4.14 X10^6/uL (4.0-5.2); White Blood Cell Count 8.8 X10^3/uL (4.5-11.0)
[2021-03-12 11:21] LABS: Alanine Aminotransferase 40 IU/L (<35); Albumin Globulin Ratio 1.3 (1.0-2.8); Alkaline Phosphatase 119 U/L (38-126); Aspartate Aminotransferase 38 IU/L (14-36); BUN Creatinine Ratio 16.9 (6-22); Bilirubin Total 0.2 mg/dL (0.2-1.3); Blood Urea Nitrogen 15 mg/dL (7-17); Carbon Dioxide 18 mmol/L (22-32); Chloride 111 mmol/L (98-107); Creatine Kinase 30 U/L (30-135); Estimated Glomerular Filt Rate > 60.0 mL/min (>60); Globulin 3.1 g/dL (1.7-4.1); Glucose 141 mg/dL (80-110); HEMOLYSIS < 15 (0-50); Lipase 81 U/L (23-300); Sodium 141 mmol/L (137-145); Total Protein 7.1 g/dL (6.3-8.2)
[2021-03-12] MEDS: MORPHINE 2 MG/ML INJ IV ×3 (11:29→21:13)
[2021-03-12] MEDS: diphenhydrAMINE 50 MG/ML VIAL 25 MG IV (11:30)
[2021-03-12] MEDS: methylPREDNISolone 125 MG/2 ML VIAL IV (11:30)
[2021-03-12 11:32] LABS: Troponin I < 0.012 ng/mL (0.01-0.034)
--- NOTE | 2021-03-12 11:49 | DI.CT.S_ITS ---
PROCEDURE: CT ABDOMEN PELVIS W CON INDICATIONS: GI bleed with hx colectomy TECHNIQUE: After the administration of intravenous contrast, axial sections acquired from the lung bases to the pubic symphysis. Coronal and sagittal reformats were performed. For radiation dose reduction, the following was used: automated exposure control, adjustment of mA and/or kV according to patient size. COMPARISON: None. FINDINGS: Image quality: Excellent. Lung bases: Unremarkable. Heart: No significant findings. ABDOMEN: Liver: Unremarkable. Gallbladder: Status post cholecystectomy. Biliary ducts: There is diffuse elation of the intrahepatic and extrahepatic bile ducts to the level of the ampulla. The common bile duct measures up to 18 mm in diameter. Pancreas: No significant pancreatic ductal dilatation. Spleen: Coarse calcifications are seen in the spleen. Adrenal Glands: There is mild thickening of the adrenal glands without a discrete nodule. Kidneys and Ureters: Chronic cortical scarring is seen in the posterior right kidney. Small renal cysts are noted. No hydronephrosis. Stomach and Bowel: Multiple diverticula are seen throughout the colon. Postsurgical changes are seen from prior partial colectomy. Surgical clips are seen near the gastroesophageal junction. Mucosal hyperenhancement is seen within the descending and sigmoid colon and rectum as well as in the right colon. The transverse colon is underdistended. Peritoneum: No abnormal intraperitoneal fluid. No free air. Ventral Wall: No hernias. Abdominal Nodes: No retroperitoneal or mesenteric adenopathy by size criteria. Vessels: There is ectasia of the infrarenal abdominal aorta measuring up to 2.1 x 2.4 cm in diameter. PELVIS: Pelvic Organs: Unremarkable. Bladder: Unremarkable. Pelvic Nodes: No enlarged lymph nodes. Miscellaneous: No hernias are seen. Bones: There is grade 1 anterolisthesis of L4 on L5 secondary to facet hypertrophy. Bulky calcifications in the subcutaneous tissues surrounding the hips are most likely injection granulomas. IMPRESSION: 1. Postsurgical changes from partial right colectomy. Multiple diverticula are seen in the colon without signs of acute diverticulitis. Mild mucosal hyperenhancement involving the majority of the colon and rectum may be related to the timing of the contrast bolus versus a nonspecific proctocolitis. No active contrast extravasation is seen within the bowel. 2. Diffuse dilation of the intrahepatic and extrahepatic bile ducts is seen to the level of the ampulla of Vater. Findings are likely related to the prior cholecystectomy. No choledocholith or obstructing mass is seen. If indicated, MRCP could be obtained for further evaluation. Dictated by: Sreekanth Arizmendi M.D. on 03/12/2021 at 12:15 Approved by: Sreekanth Arizmendi M.D. on 03/12/2021 at 12:28
[2021-03-12 12:58] LABS: Reflexed Lactate in 2 Hours Y
[2021-03-12 14:09] LABS: Lactate 2HR (Lactic Acid Rflx) 1.2 mmol/L (0.7-2.1)
[2021-03-12] MEDS: SODIUM CHLORIDE 0.9% 1,000 ML 125 ML IV ×2 (14:56→22:26)
[2021-03-12 15:46] LABS: Hemoglobin 11.9 g/dL (12.0-16.0); Mean Corpuscular Hemoglobin 30.1 PG (26-34); Mean Corpuscular Volume 88.5 fL (80-100); Platelet Count 362 X10^3/uL (150-400); Red Blood Cell Count 3.95 X10^6/uL (4.0-5.2); Red Cell Distribution Width 15.3 % (11.6-14.8); White Blood Cell Count 7.7 X10^3/uL (4.5-11.0)
[2021-03-12 17:49] LABS: COVID19 - ADMIT (NP swab/PCR) Negative (Negative)
--- NOTE | 2021-03-12 18:25 | PM.HP.1 ---
History of Present Illness History of Present Illness Date Patient Seen: 03/12/21 Time Patient Seen: 08:00 Chief complaint: Bloody stool Narrative: Ms. Hunter is an 81W with PMH of multiple CVAs, paroxysmal afib, HTN, HL, GERD who had a previous GI bleed from a bleeding polypectomy that required emergent colectomy. She had been in her normal state of health and started having some abdominal cramping. She then had a couple episodes of bright red blood per rectum. She was feeling dizzy and short of breath. She did not have any nausea or vomiting. She has not had any recent endoscopy or colonoscopy. She does take two excedrin each day, not always on a full stomach. In the ED, workup was done, vitals were notable for mild tachycardia to the 100s, she did drop blood pressure as low as the 90s systolic. Labs notable for wbc 8.8, hgb 12.1, creatinine 0.89, troponin negative, lactate 2.8, repeat 1.2. Chest xray was negative. CT abdomen showed no acute process with postsurgical from a partial right colectomy. Surgical history: R colectomy due to GI bleed Family history: Mother, Father with stroke Social history: retired nurse, occasional alcohol Patient History Family & Social History Social History: household members spouse lives independently Yes other Family history was noncontributory. Safety & Behavioral: Feels Safe in Current Yes Environment Been Physically Hurt or No Threatened By a Person Suicidal Ideation Description None Suicide Plan Description No Plan Tobacco & Substance use: Smoking Status Never smoker alcohol intake frequency 0-2 drinks per day Substance Use Type does not use Meds Home Medications and Allergies Home Medications Medication Instructions Recorded Confirmed Type latanoprost 0.005 % eye drops 1 drp OPHTHALMIC (EYE) QHS 10/12/17 10/12/17 History pantoprazole 40 mg tablet,delayed 40 mg PO DAILY 10/12/17 10/12/17 History release ondansetron 4 mg disintegrating 4 mg PO Q6H PRN #20 tab 12/22/18 Rx tablet Allergies Allergy/AdvReac Type Severity Reaction Status Date / Time codeine [CODEINE] Allergy Severe HAND Verified 03/12/21 10:39 SWELLING trimethoprim [From BACTRIM] Allergy Severe N/V, Verified 03/12/21 10:39 BREATHING PROBLEMS Penicillins [PENICILLINS] Allergy Intermediate childhood Verified 03/12/21 16:22 reaction, probably not severe sulfamethoxazole Allergy Mild N/V Verified 03/12/21 10:39 [From BACTRIM] clindamycin [CLINDAMYCIN] Allergy Unknown PT UNSURE Verified 03/12/21 10:39 gentamicin [GENTAMICIN] Allergy Unknown PT UNSURE Verified 03/12/21 10:39 ALL THE CILLINS Allergy Severe ITCH Uncoded 03/12/21 10:39 IV CONTRAST DYE Allergy Severe RASH, Uncoded 03/12/21 10:39 SWEATING RAW CELERY Allergy Severe ANAPHYLAXIS Uncoded 03/12/21 10:39 Review of Systems Review of Systems Narrative: 14 systems reviewed and negative aside from what is noted in HPI Exam Vital Signs (past 8 hours): - 03/12/21 10:30 03/12/21 10:31 03/12/21 11:00 Temperature 97.6 F Pulse Rate 81 102 H 86 Respiratory Rate 20 Blood Pressure 129/71 157/87 H 117/75 Pulse Oximetry 95 98 96 03/12/21 11:30 03/12/21 12:05 03/12/21 12:06 Temperature Pulse Rate 79 73 73 Respiratory Rate 22 Blood Pressure 99/67 157/80 H Pulse Oximetry 96 98 99 03/12/21 12:30 03/12/21 12:47 03/12/21 13:00 Temperature Pulse Rate 78 76 79 Respiratory Rate 20 24 Blood Pressure 138/69 140/80 Pulse Oximetry 97 96 96 03/12/21 13:30 03/12/21 13:48 03/12/21 13:58 Temperature 97.6 F 97.4 F L Pulse Rate 81 102 H Respiratory Rate 18 Blood Pressure 138/82 149/85 H Pulse Oximetry 92 94 03/12/21 14:25 03/12/21 15:45 Temperature 97.1 F L Pulse Rate 88 Respiratory Rate 19 Blood Pressure 116/63 Pulse Oximetry 96 97 Oxygen Delivery Method Room Air Oxygen Flow Rate 0 Narrative Exam Narrative: GEN: no acute distress HEENT: moist mucous membranes, PERRL NECK: no JVD, trachea midline CV: regular rate and rhythm, with no murmurs PULM: clear bilaterally, no wheezes, rhonchi, rales ABD: soft, nontender, nondistended, no organomegaly, normal bowel sounds EXT: warm and well perfused with no edema NEURO: awake, alert, oriented, moving all extremities, no focal deficits Objective Labs Result Diagrams: 03/12/21 15:15 03/12/21 10:50 Labs: Laboratory Results - last 24 hr 03/12/21 03/12/21 03/12/21 10:50 10:50 10:50 WBC 8.8 RBC 4.14 Hgb 12.1 Hct 37.2 MCV 89.8 MCH 29.3 MCHC 32.6 RDW 15.0 H Plt Count 397 Neut % (Auto) 70.3 Lymph % (Auto) 16.9 L [place] % (Auto) 6.5 Eos % (Auto) 5.0 H Baso % (Auto) 1.3 Neut # (Auto) 6200 Lymph # (Auto) 1500 [place] # (Auto) 600 Eos # (Auto) 400 Baso # (Auto) 100 PT 10.8 INR 1.0 APTT 33 Sodium 141 Potassium 4.0 Chloride 111 H Carbon Dioxide 18 L BUN 15 Creatinine 0.89 Estimated GFR > 60.0 BUN/Creatinine Ratio 16.9 Glucose 141 H Lactate Calcium 10.0 Total Bilirubin 0.2 AST 38 H ALT 40 H Alkaline Phosphatase 119 Total Creatine Kinase 30 CK-MB (CK-2) TNP CK-MB (CK-2) Rel Index TNP Troponin I < 0.012 Total Protein 7.1 Albumin 4.0 Globulin 3.1 Albumin/Globulin Ratio 1.3 Lipase 81 SARS-CoV-2 (PCR) Blood Type Antibody Screen 03/12/21 03/12/21 03/12/21 10:50 10:50 13:15 WBC RBC Hgb Hct MCV MCH MCHC RDW Plt Count Neut % (Auto) Lymph % (Auto) [place] % (Auto) Eos % (Auto) Baso % (Auto) Neut # (Auto) Lymph # (Auto) [place] # (Auto) Eos # (Auto) Baso # (Auto) PT INR APTT Sodium Potassium Chloride Carbon Dioxide BUN Creatinine Estimated GFR BUN/Creatinine Ratio Glucose Lactate 2.8 H 1.2 Calcium Total Bilirubin AST ALT Alkaline Phosphatase Total Creatine Kinase CK-MB (CK-2) CK-MB (CK-2) Rel Index Troponin I Total Protein Albumin Globulin Albumin/Globulin Ratio Lipase SARS-CoV-2 (PCR) Blood Type A Positive Antibody Screen Negative 03/12/21 03/12/21 15:15 16:40 WBC 7.7 RBC 3.95 L Hgb 11.9 L Hct 35.0 L MCV 88.5 MCH 30.1 MCHC 34.0 RDW 15.3 H Plt Count 362 Neut % (Auto) Lymph % (Auto) [place] % (Auto) Eos % (Auto) Baso % (Auto) Neut # (Auto) Lymph # (Auto) [place] # (Auto) Eos # (Auto) Baso # (Auto) PT INR APTT Sodium Potassium Chloride Carbon Dioxide BUN Creatinine Estimated GFR BUN/Creatinine Ratio Glucose Lactate Calcium Total Bilirubin AST ALT Alkaline Phosphatase Total Creatine Kinase CK-MB (CK-2) CK-MB (CK-2) Rel Index Troponin I Total Protein Albumin Globulin Albumin/Globulin Ratio Lipase SARS-CoV-2 (PCR) Negative Blood Type Antibody Screen Assessment & Plan Assessment & Plan narrative: Ms. Hunter is a 81W with a PMH of CVA, HTN, HL, GERD, paroxysmal atrial fibrillation who came to the hospital for GI bleed. 1. Acute GI bleed -possible lower GI bleed, or upper from excedrin -has two IVs -ordered for IV PPI BID -ordered for repeat hemoglobin and is stable -patient currently hemodynamically stable -recheck hemoglobin in am -npo after midnight for possible scope in am -type and screen ordered 2. History of CVA -given multiple strokes is at risk to stopping anti-platelet, however given bleed will need to stop acutely -did discuss stopping with patient who understands -will restart as soon as ablve 3. HTN -hold anti-hypertensives for now 4. HL -hold statin for now 5. GERD -on ppi as above 6. paroxysmal atrial fibrillation -ekg currently shows sinus CODE: DNR Proxy: Fabian Hunter, I have utilized all available resources to review update, and confirm his current medications Time Spent With Patient Critical Care time: I spent a total of [] minutes of critical care time on this patient's care today; this time is exclusive of procedural time. Quality MIPS - Admit I confirm the patient?s Advance Care Plan is present, Code status is documented, Surrogate decision maker is in patient?s record [If Yes, STOP here]: Yes
[2021-03-12] MEDS: MELATONIN 3 MG TABLET 6 MG PO (20:32)
--- NOTE | 2021-03-12 20:36 | P.HP_ITS ---
History of Present Illness History of Present Illness Date Patient Seen: 03/12/21 Time Patient Seen: 19:45 Chief complaint: GI bleeding, resolving UTI Narrative: Shantell Jackson is an 81-year-old retired female with a prior history of hiatal hernia and previous workups for upper GI bleeding presented with a 1 day history of 2 episodes of significant rectal bleeding and 1 episode of hematemesis. Over the course of yesterday she was feeling poorly, very fatigued, hot, but not knowing whether she had a fever or not. Midnight last night she woke up and had significant urge to go to the bathroom, she had a significant amount of diarrhea and during that same time became nauseous and was able to position herself towards her bathroom sink where she was simultaneously vomiting and having diarrhea. She states that both the diarrhea and vomitus had what she refers to as ?globs?, she was not able to tell whether they were clots or not. She then returned to bed and arose at around 1:00 p.m. today and again had diarrhea that she states was pretty liquidy and very dark. She denies vomiting at that time. She also felt very tired and weak. She called her PCPs office and talk to the office nurse who directed her to the emergency department. She does state that she brought herself to the emergency department but was profoundly fatigued getting very exhausted every time she put on an article of clothing. She has recently completed a course of antibiotics for a urinary tract infection 2 days ago. States she cannot take Cipro and believes it might have been Bactrim that was prescribed to her however nothing is showing in her home medication or pharm acy interface. Patient History Medical History Essential hypertension GI bleed History of UTI Surgical History History of repair of ACL Family & Social History Family History (Updated 03/12/21 @ 20:58 by MILAGROS Pichardo) Mother No problems noted. Father No problems noted. Social History: household members spouse lives independently Yes other Family history was noncontributory. Safety & Behavioral: Feels Safe in Current Yes Environment Been Physically Hurt or No Threatened By a Person Suicidal Ideation Description None Suicide Plan Description No Plan Tobacco & Substance use: Smoking Status Former smoker, quit 22 years ago, 40+ year pack history alcohol intake frequency 0-2 drinks per day Substance Use Type does not use Meds Home Medications and Allergies Home Medications Medication Instructions Recorded Confirmed Type latanoprost 0.005 % eye drops 1 drp OPHTHALMIC (EYE) QHS 10/12/17 10/12/17 History pantoprazole 40 mg tablet,delayed 40 mg PO DAILY 10/12/17 10/12/17 History release ondansetron 4 mg disintegrating 4 mg PO Q6H PRN #20 tab 12/22/18 Rx tablet Allergies Allergy/AdvReac Type Severity Reaction Status Date / Time codeine [CODEINE] Allergy Severe HAND Verified 03/12/21 10:39 SWELLING trimethoprim [From BACTRIM] Allergy Severe N/V, Verified 03/12/21 10:39 BREATHING PROBLEMS Penicillins [PENICILLINS] Allergy Intermediate childhood Verified 03/12/21 16:22 reaction, probably not severe sulfamethoxazole Allergy Mild N/V Verified 03/12/21 10:39 [From BACTRIM] clindamycin [CLINDAMYCIN] Allergy Unknown PT UNSURE Verified 03/12/21 10:39 gentamicin [GENTAMICIN] Allergy Unknown PT UNSURE Verified 03/12/21 10:39 ALL THE CILLINS Allergy Severe ITCH Uncoded 03/12/21 10:39 IV CONTRAST DYE Allergy Severe RASH, Uncoded 03/12/21 10:39 SWEATING RAW CELERY Allergy Severe ANAPHYLAXIS Uncoded 03/12/21 10:39 Review of Systems Review of Systems ROS: Yes All systems reviewed with the patient and are negative except as otherwise documented Exam Vital Signs (past 8 hours): - 03/12/21 12:47 03/12/21 13:00 03/12/21 13:30 Temperature Pulse Rate 76 79 81 Respiratory Rate 24 Blood Pressure 138/69 140/80 138/82 Pulse Oximetry 96 96 92 03/12/21 13:48 03/12/21 13:58 03/12/21 14:25 Temperature 97.6 F 97.4 F L Pulse Rate 102 H Respiratory Rate 18 Blood Pressure 149/85 H Pulse Oximetry 94 96 03/12/21 15:45 03/12/21 19:04 03/12/21 20:00 Temperature 97.1 F L 96.0 F L Pulse Rate 88 97 H Respiratory Rate 19 19 Blood Pressure 116/63 138/91 H Pulse Oximetry 97 96 98 Oxygen Delivery Method Room Air Oxygen Flow Rate 0 Objective Labs Result Diagrams: 03/12/21 15:15 03/12/21 10:50 Labs: Laboratory Results - last 24 hr 03/12/21 03/12/21 03/12/21 10:50 10:50 10:50 WBC 8.8 RBC 4.14 Hgb 12.1 Hct 37.2 MCV 89.8 MCH 29.3 MCHC 32.6 RDW 15.0 H Plt Count 397 Neut % (Auto) 70.3 Lymph % (Auto) 16.9 L [place] % (Auto) 6.5 Eos % (Auto) 5.0 H Baso % (Auto) 1.3 Neut # (Auto) 6200 Lymph # (Auto) 1500 [place] # (Auto) 600 Eos # (Auto) 400 Baso # (Auto) 100 PT 10.8 INR 1.0 APTT 33 Sodium 141 Potassium 4.0 Chloride 111 H Carbon Dioxide 18 L BUN 15 Creatinine 0.89 Estimated GFR > 60.0 BUN/Creatinine Ratio 16.9 Glucose 141 H Lactate Calcium 10.0 Total Bilirubin 0.2 AST 38 H ALT 40 H Alkaline Phosphatase 119 Total Creatine Kinase 30 CK-MB (CK-2) TNP CK-MB (CK-2) Rel Index TNP Troponin I < 0.012 Total Protein 7.1 Albumin 4.0 Globulin 3.1 Albumin/Globulin Ratio 1.3 Lipase 81 SARS-CoV-2 (PCR) Blood Type Antibody Screen 03/12/21 03/12/21 03/12/21 10:50 10:50 13:15 WBC RBC Hgb Hct MCV MCH MCHC RDW Plt Count Neut % (Auto) Lymph % (Auto) [place] % (Auto) Eos % (Auto) Baso % (Auto) Neut # (Auto) Lymph # (Auto) [place] # (Auto) Eos # (Auto) Baso # (Auto) PT INR APTT Sodium Potassium Chloride Carbon Dioxide BUN Creatinine Estimated GFR BUN/Creatinine Ratio Glucose Lactate 2.8 H 1.2 Calcium Total Bilirubin AST ALT Alkaline Phosphatase Total Creatine Kinase CK-MB (CK-2) CK-MB (CK-2) Rel Index Troponin I Total Protein Albumin Globulin Albumin/Globulin Ratio Lipase SARS-CoV-2 (PCR) Blood Type A Positive Antibody Screen Negative 03/12/21 03/12/21 15:15 16:40 WBC 7.7 RBC 3.95 L Hgb 11.9 L Hct 35.0 L MCV 88.5 MCH 30.1 MCHC 34.0 RDW 15.3 H Plt Count 362 Neut % (Auto) Lymph % (Auto) [place] % (Auto) Eos % (Auto) Baso % (Auto) Neut # (Auto) Lymph # (Auto) [place] # (Auto) Eos # (Auto) Baso # (Auto) PT INR APTT Sodium Potassium Chloride Carbon Dioxide BUN Creatinine Estimated GFR BUN/Creatinine Ratio Glucose Lactate Calcium Total Bilirubin AST ALT Alkaline Phosphatase Total Creatine Kinase CK-MB (CK-2) CK-MB (CK-2) Rel Index Troponin I Total Protein Albumin Globulin Albumin/Globulin Ratio Lipase SARS-CoV-2 (PCR) Negative Blood Type Antibody Screen Assessment & Plan Time Spent With Patient Critical Care time: I spent a total of [] minutes of critical care time on this patient's care today; this time is exclusive of procedural time.
[2021-03-13] VITALS (14 sets, daily range): BP systolic 102–155; BP diastolic 55–82; PULSE 61–79; RESP 16–18; TEMP 36.3–36.7; O2SAT 95–100
[2021-03-13] MEDS: MORPHINE 2 MG/ML INJ IV ×3 (01:05→20:47)
[2021-03-13] MEDS: METOCLOPRAMIDE 10 MG/2 ML INJ 5 MG IV ×2 (01:40→11:16)
[2021-03-13] MEDS: SODIUM CHLORIDE 0.9% 1,000 ML 125 ML IV ×2 (04:43→14:49)
[2021-03-13] MEDS: PANTOPRAZOLE 40 MG VIAL IV ×2 (08:47→20:48)
[2021-03-13 09:43] LABS: Add Manual Diff / Slide Review NO; Basophils Absolute Auto 0 /uL (0-100); Basophils Percent Auto 0.3 % (0-2); Eosinophils Absolute Auto 0 /uL (0-450); Eosinophils Percent Auto 0.1 % (2-4); Hemoglobin 10.4 g/dL (12.0-16.0); Lymphocytes Absolute Auto 1700 /uL (1100-4500); Mean Corpuscular HGB Conc 32.4 % (30-36); Mean Corpuscular Hemoglobin 29.4 PG (26-34); Mean Corpuscular Volume 90.6 fL (80-100); Monocytes Absolute Auto 600 /uL (0-900); Monocytes Percent Auto 7.5 % (3-14); Neutrophils Absolute Auto 6200 /uL (1500-7000); Neutrophils Percent Auto 72.1 % (50-75); Platelet Count 352 X10^3/uL (150-400); Red Blood Cell Count 3.53 X10^6/uL (4.0-5.2); Red Cell Distribution Width 14.9 % (11.6-14.8); White Blood Cell Count 8.5 X10^3/uL (4.5-11.0)
[2021-03-13 10:04] LABS: BUN Creatinine Ratio 15.5 (6-22); Blood Urea Nitrogen 13 mg/dL (7-17); Calcium 8.8 mg/dL (8.4-10.2); Carbon Dioxide 14 mmol/L (22-32); Chloride 110 mmol/L (98-107); Estimated Glomerular Filt Rate > 60.0 mL/min (>60); Glucose 156 mg/dL (80-110); HEMOLYSIS < 15 (0-50); Potassium 4.2 mmol/L (3.4-5.1); Sodium 139 mmol/L (137-145)
[2021-03-13] MEDS: PEG3350/SOD SULF,BICARB,CL/KCL 4,000 ML SOLUTION 4000 ML PO (11:15)
[2021-03-13] MEDS: ACETAMINOPHEN 325 MG TABLET 650 MG PO (11:15)
--- NOTE | 2021-03-13 12:04 | PM.CN ---
History of Present Illness Consult details Date Patient Seen: 03/13/21 Time Patient Seen: 09:50 Chief complaint: GI bleeding, resolving UTI Reason for consult: Anemia, dark loose stools. Requesting provider: Abran Savage Narrative: Yesterday had black stool, and again this morning. Prior episode of GI bleed with colonic and required a partial colectomy. No abdominal pain or nausea today. On in anticoagulation nor anti ulcer medication. NO significant weight loss. Meds Home Medications and Allergies Home Medications Medication Instructions Recorded Confirmed Type latanoprost 0.005 % eye drops 1 drp OPHTHALMIC (EYE) QHS 10/12/17 10/12/17 History pantoprazole 40 mg tablet,delayed 40 mg PO DAILY 10/12/17 10/12/17 History release ondansetron 4 mg disintegrating 4 mg PO Q6H PRN #20 tab 12/22/18 Rx tablet Allergies Allergy/AdvReac Type Severity Reaction Status Date / Time codeine [CODEINE] Allergy Severe HAND Verified 03/12/21 10:39 SWELLING trimethoprim [From BACTRIM] Allergy Severe N/V, Verified 03/12/21 10:39 BREATHING PROBLEMS Penicillins [PENICILLINS] Allergy Intermediate childhood Verified 03/12/21 16:22 reaction, probably not severe sulfamethoxazole Allergy Mild N/V Verified 03/12/21 10:39 [From BACTRIM] clindamycin [CLINDAMYCIN] Allergy Unknown PT UNSURE Verified 03/12/21 10:39 gentamicin [GENTAMICIN] Allergy Unknown PT UNSURE Verified 03/12/21 10:39 ALL THE CILLINS Allergy Severe ITCH Uncoded 03/12/21 10:39 IV CONTRAST DYE Allergy Severe RASH, Uncoded 03/12/21 10:39 SWEATING RAW CELERY Allergy Severe ANAPHYLAXIS Uncoded 03/12/21 10:39 Exam Vital Signs (past 8 hours): - 03/13/21 04:39 03/13/21 04:46 03/13/21 08:00 Temperature 98.1 F 97.3 F L Pulse Rate 70 78 Respiratory Rate 18 18 Blood Pressure 149/76 H 155/58 H Pulse Oximetry 95 95 100 03/13/21 09:03 03/13/21 11:51 Temperature 97.5 F L Pulse Rate 61 Respiratory Rate 17 Blood Pressure 133/63 Pulse Oximetry 99 99 Oxygen Delivery Method Room Air Oxygen Flow Rate 0 Objective Labs Result Diagrams: 03/13/21 09:20 03/13/21 09:20 Labs: Laboratory Results - last 24 hr 03/12/21 03/12/21 03/12/21 10:50 13:15 15:15 WBC 7.7 RBC 3.95 L Hgb 11.9 L Hct 35.0 L MCV 88.5 MCH 30.1 MCHC 34.0 RDW 15.3 H Plt Count 362 Neut % (Auto) Lymph % (Auto) [place] % (Auto) Eos % (Auto) Baso % (Auto) Neut # (Auto) Lymph # (Auto) [place] # (Auto) Eos # (Auto) Baso # (Auto) Sodium Potassium Chloride Carbon Dioxide BUN Creatinine Estimated GFR BUN/Creatinine Ratio Glucose Lactate 1.2 Calcium SARS-CoV-2 (PCR) Blood Type A Positive Antibody Screen Negative 03/12/21 03/13/21 03/13/21 16:40 09:20 09:20 WBC 8.5 RBC 3.53 L Hgb 10.4 L Hct 32.0 L MCV 90.6 MCH 29.4 MCHC 32.4 RDW 14.9 H Plt Count 352 Neut % (Auto) 72.1 Lymph % (Auto) 20.0 L [place] % (Auto) 7.5 Eos % (Auto) 0.1 L Baso % (Auto) 0.3 Neut # (Auto) 6200 Lymph # (Auto) 1700 [place] # (Auto) 600 Eos # (Auto) 0 Baso # (Auto) 0 Sodium 139 Potassium 4.2 Chloride 110 H Carbon Dioxide 14 L BUN 13 Creatinine 0.84 Estimated GFR > 60.0 BUN/Creatinine Ratio 15.5 Glucose 156 H Lactate Calcium 8.8 SARS-CoV-2 (PCR) Negative Blood Type Antibody Screen [facility] Medical History Essential hypertension GI bleed History of UTI Surgical History History of repair of ACL Family History Mother No problems noted. Father No problems noted. Social History household members: spouse lives independently: Yes housing: house other: Family history was noncontributory. Tobacco & Substance Use Smoking Status: Never smoker Past History Past surgical history: partial colectomy Assessment & Plan Time Spent With Patient Critical Care time: I spent a total of [] minutes of critical care time on this patient's care today; this time is exclusive of procedural time.
--- NOTE | 2021-03-13 12:09 | P.CONS_ITS ---
History of Present Illness Consult details Date Patient Seen: 03/13/21 Time Patient Seen: 09:50 Chief complaint: GI bleeding, resolving UTI Reason for consult: gi bleed Requesting provider: Abran Savage Narrative: Dark stools starting yesterday. H/O GI bleed resulting in partial colectomy. No abdominal pain, no nausea or emesis. On no anticoagulation Meds Home Medications and Allergies Home Medications Medication Instructions Recorded Confirmed Type latanoprost 0.005 % eye drops 1 drp OPHTHALMIC (EYE) QHS 10/12/17 10/12/17 History pantoprazole 40 mg tablet,delayed 40 mg PO DAILY 10/12/17 10/12/17 History release ondansetron 4 mg disintegrating 4 mg PO Q6H PRN #20 tab 12/22/18 Rx tablet Allergies Allergy/AdvReac Type Severity Reaction Status Date / Time codeine [CODEINE] Allergy Severe HAND Verified 03/12/21 10:39 SWELLING trimethoprim [From BACTRIM] Allergy Severe N/V, Verified 03/12/21 10:39 BREATHING PROBLEMS Penicillins [PENICILLINS] Allergy Intermediate childhood Verified 03/12/21 16:22 reaction, probably not severe sulfamethoxazole Allergy Mild N/V Verified 03/12/21 10:39 [From BACTRIM] clindamycin [CLINDAMYCIN] Allergy Unknown PT UNSURE Verified 03/12/21 10:39 gentamicin [GENTAMICIN] Allergy Unknown PT UNSURE Verified 03/12/21 10:39 ALL THE CILLINS Allergy Severe ITCH Uncoded 03/12/21 10:39 IV CONTRAST DYE Allergy Severe RASH, Uncoded 03/12/21 10:39 SWEATING RAW CELERY Allergy Severe ANAPHYLAXIS Uncoded 03/12/21 10:39 Review of Systems Review of Systems ROS: Yes All systems reviewed with the patient and are negative except as otherwise documented Exam Vital Signs (past 8 hours): - 03/13/21 04:39 03/13/21 04:46 03/13/21 08:00 Temperature 98.1 F 97.3 F L Pulse Rate 70 78 Respiratory Rate 18 18 Blood Pressure 149/76 H 155/58 H Pulse Oximetry 95 95 100 03/13/21 09:03 03/13/21 11:51 Temperature 97.5 F L Pulse Rate 61 Respiratory Rate 17 Blood Pressure 133/63 Pulse Oximetry 99 99 Oxygen Delivery Method Room Air Oxygen Flow Rate 0 Const General: cooperative and comfortable [facility] Head: normocephalic and atraumatic Eyes Conjunctivae: conjunctivae normal Sclera: sclerae normal Neck Neck: trachea midline Resp Effort & Inspection: normal respiratory effort and able to speak in complete sentences Cardio Rate: regular rate Rhythm: regular rhythm GI Inspection: normal to inspection Palpation: soft Skin General: atrophy and dry skin Neuro General: patient alert and patient oriented x3 Cognition: normal cognition Extrem General: full ROM and capillary refill normal Psych Appearance: grossly normal Objective Labs Result Diagrams: 03/13/21 09:20 03/13/21 09:20 Labs: Laboratory Results - last 24 hr 03/12/21 03/12/21 03/12/21 10:50 13:15 15:15 WBC 7.7 RBC 3.95 L Hgb 11.9 L Hct 35.0 L MCV 88.5 MCH 30.1 MCHC 34.0 RDW 15.3 H Plt Count 362 Neut % (Auto) Lymph % (Auto) [place] % (Auto) Eos % (Auto) Baso % (Auto) Neut # (Auto) Lymph # (Auto) [place] # (Auto) Eos # (Auto) Baso # (Auto) Sodium Potassium Chloride Carbon Dioxide BUN Creatinine Estimated GFR BUN/Creatinine Ratio Glucose Lactate 1.2 Calcium SARS-CoV-2 (PCR) Blood Type A Positive Antibody Screen Negative 03/12/21 03/13/21 03/13/21 16:40 09:20 09:20 WBC 8.5 RBC 3.53 L Hgb 10.4 L Hct 32.0 L MCV 90.6 MCH 29.4 MCHC 32.4 RDW 14.9 H Plt Count 352 Neut % (Auto) 72.1 Lymph % (Auto) 20.0 L [place] % (Auto) 7.5 Eos % (Auto) 0.1 L Baso % (Auto) 0.3 Neut # (Auto) 6200 Lymph # (Auto) 1700 [place] # (Auto) 600 Eos # (Auto) 0 Baso # (Auto) 0 Sodium 139 Potassium 4.2 Chloride 110 H Carbon Dioxide 14 L BUN 13 Creatinine 0.84 Estimated GFR > 60.0 BUN/Creatinine Ratio 15.5 Glucose 156 H Lactate Calcium 8.8 SARS-CoV-2 (PCR) Negative Blood Type Antibody Screen [facility] Medical History Essential hypertension GI bleed History of UTI Surgical History History of repair of ACL Family History Mother No problems noted. Father No problems noted. Social History household members: spouse lives independently: Yes housing: house other: Family history was noncontributory. Tobacco & Substance Use Smoking Status: Never smoker Assessment & Plan Assessment & Plan narrative: acute blood loss anemia GI bleed Plan: EGD and colonoscopy tomorrow with anesthesia COVID-19 COVID-19 status: Negative Time Spent With Patient Time with patient: 30 to 49 minutes with 50% spent counseling/coordinating care Critical Care time: I spent a total of [] minutes of critical care time on this patient's care today; this time is exclusive of procedural time.
--- NOTE | 2021-03-13 12:25 | CM.DANOTE ---
DCP: Case received, EMR reviewed and met with patient. Introduced self and role. Was able to obtain information regarding patient's baseline activity level at home prior to her hospitalization. DCP assessment completed with information currently available. Patient is an 81 year old female who admitted yesterday afternoon to the care of the hospitalist team. PCP: Dr. Dasilva. Payer: confirmed: Medicare/BCBS Out of [facility]. Patient came to the hospital via private vehicle secondary to having some rectal bleeding with passing clots. Patient had been having loose stools and vomiting at home while in the bathroom. Patient holds current diagnosis of acute GI bleed. She will be having a surgery consult for a scope procedure. Met with patient in her room. She is pleasant, and appreciative of her care. She was laying in bed, alert and oriented. Confirmed that she resides in [place] with her spouse, Fabian. She does not drive much due to her vision, which was effected by her past stroke. She uses a cane when needed at her baseline. She is originally from [place], but has lived here for years with her , and had her home built. She lives in a 4 story home, and stated that she does have a house keeper come in. P: DCP to continue to follow. Patient should be able to go home when she is deemed medically stable. Valentina Moctezuma RN/Data Assistant Discharge Planning/Care Management CM Discharge Assessment Start: 03/13/21 12:24 Freq: Status: Active Protocol: Document 03/13/21 12:24 (Rec: 03/13/21 12:25 [id number]) Discharge Planning Assessment Assigned Ball Warper Tender Valentina Moctezuma RN/Data Assistant Advance Directives? Yes Advance Directives on File No History Provided By Patient,Medical Record Household Members spouse Type of transporation used prior to Drives own vehicle admit Independent with ADL's Yes Is patient alert and oriented? Yes Caregiver for Another No Barriers to Discharge No Discharge Plan Home Transportation Arrangement Family available for transport at d/c. Referrals Initiated None needed Whiteboard Updated in Patient Room with Yes name and ext. # of Ball Warper Tender Review Status In Process Next Review Type Continued Stay Review
--- NOTE | 2021-03-13 12:32 | PM.PN.1 ---
Subjective Subjective Date Patient Seen: 03/13/21 Time Patient Seen: 08:00 Interval history: Overnight she had dark stools. She feels well currently with no dizzines, lightheadedness, shortness of breath. Her abdominal pain is improved. Exam Vital Signs (past 8 hours): - 03/13/21 04:39 03/13/21 04:46 03/13/21 07:45 Temperature 98.1 F Pulse Rate 70 Respiratory Rate 18 Blood Pressure 149/76 H Pulse Oximetry 95 95 100 03/13/21 08:00 03/13/21 09:03 03/13/21 11:51 Temperature 97.3 F L 97.5 F L Pulse Rate 78 61 Respiratory Rate 18 17 Blood Pressure 155/58 H 133/63 Pulse Oximetry 100 99 99 Oxygen Delivery Method Room Air Oxygen Flow Rate 0 Narrative Exam Narrative: GEN: no acute distress HEENT: moist mucous membranes, PERRL NECK: no JVD, trachea midline CV: regular rate and rhythm, with no murmurs PULM: clear bilaterally, no wheezes, rhonchi, rales ABD: soft, nontender, nondistended, no organomegaly, normal bowel sounds EXT: warm and well perfused with no edema NEURO: awake, alert, oriented, moving all extremities, no focal deficits Objective Labs Result Diagrams: 03/13/21 09:20 03/13/21 09:20 Labs: Laboratory Results - last 24 hr 03/12/21 03/12/21 03/12/21 10:50 13:15 15:15 WBC 7.7 RBC 3.95 L Hgb 11.9 L Hct 35.0 L MCV 88.5 MCH 30.1 MCHC 34.0 RDW 15.3 H Plt Count 362 Neut % (Auto) Lymph % (Auto) [place] % (Auto) Eos % (Auto) Baso % (Auto) Neut # (Auto) Lymph # (Auto) [place] # (Auto) Eos # (Auto) Baso # (Auto) Sodium Potassium Chloride Carbon Dioxide BUN Creatinine Estimated GFR BUN/Creatinine Ratio Glucose Lactate 1.2 Calcium SARS-CoV-2 (PCR) Blood Type A Positive Antibody Screen Negative 03/12/21 03/13/21 03/13/21 16:40 09:20 09:20 WBC 8.5 RBC 3.53 L Hgb 10.4 L Hct 32.0 L MCV 90.6 MCH 29.4 MCHC 32.4 RDW 14.9 H Plt Count 352 Neut % (Auto) 72.1 Lymph % (Auto) 20.0 L [place] % (Auto) 7.5 Eos % (Auto) 0.1 L Baso % (Auto) 0.3 Neut # (Auto) 6200 Lymph # (Auto) 1700 [place] # (Auto) 600 Eos # (Auto) 0 Baso # (Auto) 0 Sodium 139 Potassium 4.2 Chloride 110 H Carbon Dioxide 14 L BUN 13 Creatinine 0.84 Estimated GFR > 60.0 BUN/Creatinine Ratio 15.5 Glucose 156 H Lactate Calcium 8.8 SARS-CoV-2 (PCR) Negative Blood Type Antibody Screen [facility] Medical History Essential hypertension GI bleed History of UTI Surgical History History of repair of ACL Family History Mother No problems noted. Father No problems noted. Social History (Updated 03/12/21 @ 20:59 by MILAGROS Pichardo) household members: spouse lives independently: Yes housing: house other: Family history was noncontributory. Smoking Status: Never smoker Assessment & Plan Assessment & Plan narrative: Ms. Hunter is a 81W with a PMH of CVA, HTN, HL, GERD, paroxysmal atrial fibrillation who came to the hospital for GI bleed. 1. Acute GI bleed -possible lower GI bleed, or upper from excedrin -has two IVs -ordered for IV PPI BID -ordered for repeat hemoglobin tonight -patient currently hemodynamically stable -npo after midnight for possible scope in am -surgery consult and plan for EGD/colo tomorrow -type and screen ordered 2. History of CVA -given multiple strokes is at risk to stopping anti-platelet, however given bleed will need to stop acutely -did discuss stopping with patient who understands -will restart as soon as able, when no further GI bleed 3. HTN -hold anti-hypertensives for now 4. HL -hold statin for now 5. GERD -on ppi as above 6. paroxysmal atrial fibrillation -ekg currently shows sinus CODE: DNR Proxy: Fabian Hunter, I have utilized all available resources to review update, and confirm his current medications Time Spent With Patient Critical Care time: I spent a total of [] minutes of critical care time on this patient's care today; this time is exclusive of procedural time.
[2021-03-13 17:25] LABS: Hematocrit 33.3 % (36-46); Mean Corpuscular HGB Conc 32.9 % (30-36); Mean Corpuscular Hemoglobin 29.6 PG (26-34); Mean Corpuscular Volume 89.8 fL (80-100); Platelet Count 300 X10^3/uL (150-400); Red Blood Cell Count 3.71 X10^6/uL (4.0-5.2); White Blood Cell Count 8.8 X10^3/uL (4.5-11.0)
[2021-03-13] MEDS: MELATONIN 3 MG TABLET 6 MG PO (20:48)
[2021-03-14] VITALS (12 sets, daily range): BP systolic 100–191; BP diastolic 48–86; PULSE 63–82; RESP 10–20; TEMP 36.2–37.1; O2SAT 93–100; BMI 25.4
--- NOTE | 2021-03-14 | PATH_ITS ---
[facility] Accession Number: [id number] . 01 Material submitted: . stomach - ANTRUM-H. PYLORI . 02 Diagnosis: Stomach, Antrum, Biopsies: Gastric antral and body mucosa with minimal chronic inflammation. Negative for Helicobacter organisms by immunohistochemistry. Negative for intestinal metaplasia. Negative for dysplasia or malignancy. MRV 03/19/2021 1429 Local . 02 Electronically signed: . Cyrus Rousseau MD, PhD, Pathologist NPI- [id number] . 01 Gross description: . ANTRUM-H. PYLORI: Received in formalin are 2 fragment(s) of hardwick, soft tissue measuring 0.4 x 0.2 x 0.1 cm to 0.3 x 0.2 x 0.2 cm submitted entirely in 1 cassette(s) /ARLINE 03/16/2021 0352 Local . 02 Microscopic: . An immunohistochemical stain was performed to evaluate for Helicobacter organisms and is negative. The control stain showed appropriate reactivity. . * This test was developed and its performance characteristics determined by [facility]. It has not been cleared or approved by the U.S. Food and Drug Administration. The FDA has determined that such clearance or approval is not necessary. This test is used for clinical purposes. It should not be regarded as investigational or for research. . 02 Pathologist provided ICD-10: K29.70 . 02 CPT . 718093, D75026 Performed at: 01 [facility] [address], [place], [place] [id number] MD Wander Mcelroy MD Phone: [phone] Performed at: 02 [facility] [place] [address] [place], [place] [id number] MD Lauren Dennison MD Phone: [phone]
[2021-03-14] MEDS: MORPHINE 2 MG/ML INJ IV (02:33)
[2021-03-14] MEDS: SODIUM CHLORIDE 0.9% 1,000 ML 125 ML IV (04:09)
[2021-03-14] MEDS: METOCLOPRAMIDE 10 MG/2 ML INJ 5 MG IV (04:56)
[2021-03-14] MEDS: HYDROCODONE/ACET 5/325 TABLET 1 TAB PO ×2 (06:11→14:06)
--- NOTE | 2021-03-14 06:21 | PC.NURSE ---
Verified with Dr. Graham if it's ok to give pt. Hydrocodone even if pt. is allergic to codeine, state it is ok.
[2021-03-14 08:04] LABS: Hematocrit 29.5 % (36-46); Mean Corpuscular HGB Conc 33.8 % (30-36); Mean Corpuscular Volume 88.6 fL (80-100); Platelet Count 292 X10^3/uL (150-400); Red Blood Cell Count 3.33 X10^6/uL (4.0-5.2); Red Cell Distribution Width 14.9 % (11.6-14.8); White Blood Cell Count 4.7 X10^3/uL (4.5-11.0)
[2021-03-14] MEDS: PANTOPRAZOLE 40 MG VIAL IV (08:07)
[2021-03-14 08:14] LABS: BUN Creatinine Ratio 8.6 (6-22); Blood Urea Nitrogen 5 mg/dL (7-17); Calcium 8.3 mg/dL (8.4-10.2); Carbon Dioxide 23 mmol/L (22-32); Chloride 111 mmol/L (98-107); Estimated Glomerular Filt Rate > 60.0 mL/min (>60); Glucose 92 mg/dL (80-110); HEMOLYSIS < 15 (0-50); Potassium 3.4 mmol/L (3.4-5.1); Sodium 140 mmol/L (137-145)
--- NOTE | 2021-03-14 08:46 | PM.PREOP ---
Pre-operative Note COVID-19 COVID-19 status: Negative Interval Note History & Physical reviewed/Exam performed by Physician: Yes Changes to H&P: No
[2021-03-14] MEDS: LACTATED RINGERS 1,000 ML 42 ML IV (10:53)
--- NOTE | 2021-03-14 11:31 | PM.OP.ENDO ---
Operative Date/Time/Diagnoses Date of procedure: 03/14/21 Time of procedure: 11:32 Pre-op diagnosis: GI bleeding Post-op diagnosis: same Procedure & Clinicians Study performed: EGD Same procedure as scheduled: Yes Indications: GI bleed Surgeon: Yanely Rod Procedure Notes SCOAP/Timeout: none Procedure in detail: Preop diagnosis: GI bleed Postop diagnosis: Same Operative procedure: EGD with biopsy Surgeon: Darcie Rod MD Findings: Gastritis and gastric erosions, moderate hiatal hernia. Biopsies taken of antrum for H.pylori, no ulcerations Procedure: Patient placed in a supine position. Scope inserted into his esophagus and advanced into the stomach. With aggressive insufflation I was able to identify the pylorus intubated into the duodenum. Insufflation extractions scope including retroflex had the above findings. Impression: Gastritis with gastric erosions no overt ulcers. Biopsies taken for H pylori Plan continue on b.i.d. proton pump inhibitors, await for results from H pylori biopsy Findings: gastritis and other findings (Gastric erosions) Specimen(s): other (Antral mucosal biopsies) Complications: none Impression: Gastritis with gastric erosions on once daily Prilosec. Post-procedure Plan for aftercare: Continue b.i.d. PPI for 8 weeks. Treat accordingly for H pylori when pathology is resulted Follow up: as needed Disposition: PACU
--- NOTE | 2021-03-14 11:35 | PM.OP.ENDO ---
Operative Date/Time/Diagnoses Date of procedure: 03/14/21 Time of procedure: 11:35 Pre-op diagnosis: GI bleeding. Post-op diagnosis: same Procedure & Clinicians Study performed: Colonoscopy Same procedure as scheduled: Yes Indications: GI bleed Surgeon: Yanely Rod Procedure Notes Procedure in detail: Preop diagnosis: GI bleed Postop diagnosis: Same Operative procedure: Colonoscopy with anesthesia Surgeon: Darcie Rod ND Findings: Severe pandiverticulosis. Right colon anastomosis identified. No polyps. Findings: diverticulosis Specimen(s): none sent Complications: none Impression: Impression no polyps identified. Severe diverticulosis throughout the remaining colon. 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
--- NOTE | 2021-03-14 12:00 | SUR.PHASEI ---
Report called to Courtney Canada pt transported back to room.
--- NOTE | 2021-03-14 12:03 | PC.NURSE ---
Off to OR at 1035. Pt voiced no complaint. Spouse is in the room.
--- NOTE | 2021-03-14 12:16 | SUR.PHASEI ---
Pt left with Courtney Wood and left in stable condition, bed locked and low, call mcrae in reach.
[2021-03-14 13:36] LABS: Appearance Urine UA CLEAR; Bilirubin Urine UA NEGATIVE (NEGATIVE); Color Urine UA YELLOW; Glucose Urine UA NEGATIVE (Negative); Ketones Urine UA NEGATIVE (NEGATIVE); Leukocyte Esterase Urine UA TRACE (NEGATIVE); Nitrite Urine UA POSITIVE (Negative); Occult Blood Urine UA NEGATIVE (Negative); Protein Urine UA NEGATIVE (Negative); Specific Gravity Urine UA 1.015 (1.000-1.035); Urobilinogen Urine UA 0.2 E.U./dL (0.2)
[2021-03-14 13:41] LABS: Bacteria Urine Moderate (10-30); Culture Indicated Urine Specimen Cultured; RBC Urine None Seen (0-5/HPF); WBC Urine 1-5/HPF (0-5/HPF)
[2021-03-14] MEDS: levoFLOXacin 250 MG TABLET 500 MG PO (14:06)
[2021-03-14] MEDS: POTASSIUM CHLORIDE 20 MEQ/15 ML UDC 40 MEQ PO (14:06)
--- NOTE | 2021-03-14 23:39 | PM.DS.1 ---
History of Present Illness History of Present Illness Chief complaint: GI bleeding, resolving UTI Narrative: Ms. Hunter is an 81W with PMH of multiple CVAs, paroxysmal afib, HTN, HL, GERD who had a previous GI bleed from a bleeding polypectomy that required emergent colectomy. She had been in her normal state of health and started having some abdominal cramping. She then had a couple episodes of bright red blood per rectum. She was feeling dizzy and short of breath. She did not have any nausea or vomiting. She has not had any recent endoscopy or colonoscopy. She does take two excedrin each day, not always on a full stomach. In the ED, workup was done, vitals were notable for mild tachycardia to the 100s, she did drop blood pressure as low as the 90s systolic. Labs notable for wbc 8.8, hgb 12.1, creatinine 0.89, troponin negative, lactate 2.8, repeat 1.2. Chest xray was negative. CT abdomen showed no acute process with postsurgical from a partial right colectomy. Surgical history: R colectomy due to GI bleed Family history: Mother, Father with stroke Social history: retired nurse, occasional alcohol Discharge Providers Provider Date of admission: 03/12/21 13:18 Discharge Date: 03/14/21 Primary care physician: Rylan Dasilva MD Discharge provider: Abran Savage MD Summary Hospital Course Discharge Diagnosis: 1. Acute GI bleed 2. History of CVA 3. HTN 4. HL 5. GERD 6. Paroxysmal atrial fibrillation 7. UTI Hospital Course: Ms. Hunter was admitted with a gastrointestinal bleed. She admitted she had taken 4 excedrin twice a day. She had an EGD done that showed gastritis and gastric erosions. Biopsies were taken. She was on a PPI throughout. She had no evidence of bleeding on EGD or colonoscopy. She did not require a transfusion. She was discharged on protonix BID, and iron. She was treated for a UTI and given antibiotics. She can resume all other home medications besides the excedrin. She is recommended to follow up with Dr. Rod for the results of the biopsy. Exam Vital Signs (past 8 hours): Oxygen Delivery Method Room Air Oxygen Flow Rate 0 Narrative Exam Narrative: GEN: no acute distress HEENT: moist mucous membranes, PERRL NECK: no JVD, trachea midline CV: regular rate and rhythm, with no murmurs PULM: clear bilaterally, no wheezes, rhonchi, rales ABD: soft, nontender, nondistended, no organomegaly, normal bowel sounds EXT: warm and well perfused with no edema NEURO: awake, alert, oriented, moving all extremities, no focal deficits Objective Labs Result Diagrams: 03/14/21 07:50 03/14/21 07:50 Labs: Laboratory Results - last 24 hr 03/14/21 03/14/21 03/14/21 07:50 07:50 13:25 WBC 4.7 RBC 3.33 L Hgb 10.0 L Hct 29.5 L MCV 88.6 MCH 30.0 MCHC 33.8 RDW 14.9 H Plt Count 292 Sodium 140 Potassium 3.4 Chloride 111 H Carbon Dioxide 23 BUN 5 L Creatinine 0.58 Estimated GFR > 60.0 BUN/Creatinine Ratio 8.6 Glucose 92 Calcium 8.3 L Urine Color Yellow Urine Appearance Clear Urine pH 7.0 Ur Specific [place] 1.015 Urine Protein Negative Urine Glucose (UA) Negative Urine Ketones Negative Urine Occult Blood Negative Urine Nitrate Positive H Urine Bilirubin Negative Urine Urobilinogen 0.2 Ur Leukocyte Esterase Trace H Urine RBC None seen Urine WBC 1-5/hpf Urine Bacteria Moderate (10-30) H Ur Culture Indicated? Specimen cultured ON LICENSE OF [facility] Medical History Essential hypertension GI bleed History of UTI Surgical History History of repair of ACL Family History Mother No problems noted. Father No problems noted. Social History (Updated 03/12/21 @ 20:59 by MILAGROS Pichardo) household members: spouse lives independently: Yes housing: house other: Family history was noncontributory. Smoking Status: Never smoker Discharge Plan Discharge Plan Patient Disposition: Home Provider Discharge Comment: Ms. Hunter came in to the hospital with gastrointestinal bleeding. She had inflammation in her stomach. Probably from her excedrin. She had a biopsy done and should follow up with Dr. Rod. She should stop excedrin. She did not need a transfusion. She will be given iron pills. She also had a urine infection and will be given antibiotics. Discharge orders & Medications Prescriptions: New pantoprazole 40 mg tablet,delayed release (DR/EC) 40 mg PO BID Qty: 112 RF: 0 ferrous sulfate 325 mg (65 mg iron) tablet 325 mg PO BID Qty: 60 RF: 0 levofloxacin 500 mg tablet 500 mg PO DAILY Qty: 2 RF: 0 Continued ondansetron 4 mg tablet,disintegrating 4 mg PO Q6H PRN (Reason: nausea and vomiting) Qty: 20 RF: 0 latanoprost 0.005 % Drops 1 drp ophthalmic (eye) QHS RF: 0 Discontinued pantoprazole 40 mg Tablet,Delayed Release (Dr/Ec) 40 mg PO DAILY RF: 0 Follow up/Referrals: Rylan Dasilva MD [Primary Care Provider] - Yanely Rod MD [Physician] - (follow up after EGD with a biopsy) Diet/Activity/Treatments Diet: Regular Visit Report/Discharge Packet Instructions: Upper GI Endoscopy, DI for Colonoscopy, DI for Urinary Tract Infection (UTI), DI for Gastritis, Gastrointestinal Bleeding, How to Avoid Taking NSAID-Containing Products Discharge Data Primary Care Provider: Rylan Dasilva
== END 2021-03-14 14:51 | disposition home or self-care (01) | DRG 378 ==
LOC: ED 12:43 → AC 20:40
PROVIDERS: Surgery; Admitting Provider Internal Medicine; Emergency Provider Emergency Medicine; PCP Internal Medicine; Referring Provider Emergency Medicine; Visit Provider Internal Medicine
PROC: 0DJ08ZZ Inspection of Upper Intestinal Tract, Via Natural or Artificial Opening Endoscopic (ICD-10-PCS; CPT 43235; principal; 2021-03-14 09:00)
PROC: 0DJD8ZZ Inspection of Lower Intestinal Tract, Via Natural or Artificial Opening Endoscopic (ICD-10-PCS; CPT 45378; 2021-03-14 09:00)
DX: K29.71 Gastritis, unspecified, with bleeding (principal); N39.0 Urinary tract infection, site not specified; D62 Acute posthemorrhagic anemia; K44.9 Diaphragmatic hernia without obstruction or gangrene; I48.0 Paroxysmal atrial fibrillation; I10 Essential (primary) hypertension; K21.9 Gastro-esophageal reflux disease without esophagitis; Z20.822 Contact with and (suspected) exposure to COVID-19
CPT/HCPCS: 36415; 71045; 74177; 80048; 80053; 81001; 82550; 83605; 83690; 84484; 85025; 85027; 85610; 85730; 86850; 86900; 86901; 87077; 87086; 87186; 87635; 93005; 93010; 94760; 96374; 96375; 96376; 99284; C9803; C9113; J1200; J2270; J2704; J2765; J2930